=== PATIENT | male | born 1995 | race Caucasian/White ===

== ENCOUNTER 2022-02-22 09:24 | Outpatient (CLI) | payer OTHER | END 2022-02-22 09:25 | disposition home or self-care (01) | LOC: RT 09:24 | DX: R05.9 Cough, unspecified (principal); R06.02 Shortness of breath; R53.83 Other fatigue; Z86.16 Personal history of COVID-19 | CPT/HCPCS: 94060; 94727; 94729 ==

== ENCOUNTER 2022-03-13 21:09 | Emergency (ER) | payer OTHER ==
[2022-03-13 21:28] LABS: BASOPHILS # (AUTO) 0.1 10^3/uL (0.0-0.1); BASOPHILS % (AUTO) 0.7 %; EOSINOPHILS % (AUTO) 0.5 %; HCT - HEMATOCRIT 48.3 % (42.0-52.0); HGB - HEMOGLOBIN 17.1 g/dL (14.0-18.0); LYMPHOCYTES # (AUTO) 3.2 10^3/uL (1.5-3.5); MEAN CORPUSCULAR HEMOGLOBIN 30.7 pg (27.0-31.0); MEAN CORPUSCULAR HGB CONC 35.4 g/dL (32.0-36.0); MEAN CORPUSCULAR VOLUME 86.7 fL (80.0-94.0); MEAN PLATELET VOLUME 10.6 fL (7.4-11.4); MONOCYTES # (AUTO) 0.7 10^3/uL (0.0-1.0); MONOCYTES % (AUTO) 8.3 %; NEUTROPHILS # (AUTO) 4.6 10^3/uL (1.5-6.6); NEUTROPHILS % (AUTO) 53.4 %; PLT - PLATELET COUNT 383 10^3/uL (130-450); RED BLOOD COUNT 5.57 10^6/uL (4.70-6.10); RED CELL DISTRIBUTION WIDTH 11.9 % (12.0-15.0); WHITE BLOOD COUNT 8.6 x10^3/uL (4.8-10.8)
[2022-03-13 21:35] LABS: BILIRUBIN,URINE NEGATIVE (NEGATIVE); GLUCOSE, URINE (UA) NEGATIVE (NEGATIVE); KETONES,URINE (UA) TRACE mg/dL (NEGATIVE); LEUKOCYTE ESTERASE, URINE NEGATIVE (NEGATIVE); NITRITE,URINE NEGATIVE (NEGATIVE); OCCULT BLOOD,URINE NEGATIVE (NEGATIVE); PROTEIN,URINE NEGATIVE (NEGATIVE); UROBILINOGEN,URINE 0.2 (NORMAL) E.U./dL (NORMAL)
[2022-03-13 21:36] LABS: CLARITY,URINE CLEAR (CLEAR)
[2022-03-13 21:44] LABS: ALBUMIN 4.6 g/dL (3.2-5.5); ALBUMIN/GLOBULIN RATIO 1.2 (1.0-2.2); BILIRUBIN,TOTAL 0.8 mg/dL (0.2-1.0); CALCIUM 9.4 mg/dL (8.5-10.3); CREATININE 1.1 mg/dL (0.6-1.2); POTASSIUM 3.7 mmol/L (3.5-5.0); TOTAL PROTEIN 8.3 g/dL (6.7-8.2)
[2022-03-13] MEDS ORDERED: ONDANSETRON 4 MG/2 ML VIAL IVP STA (21:45)
[2022-03-13] MEDS ORDERED: SODIUM CHLORIDE 0.9% 1,000 ML IV STA (21:45)
[2022-03-13] MEDS ORDERED: IOPAMIDOL-300 100 ML VIAL ONE ×2 (22:00→22:12)
[2022-03-13] MEDS ORDERED: IOPAMIDOL-300 100 ML VIAL IVP ONE (22:11)
--- NOTE | 2022-03-13 22:52 | ED Physician Documentation ---
PD HPI ABD PAIN - Stated complaint Stated Complaint: SHAKING, VOMIT, HEAT/COLD FLUSH - Chief complaint Chief Complaint: Abd Pain - History obtained from History obtained from: Patient - Additional information Additional information: Patient is a 27-year-old male with no significant past medical history presenting for evaluation of generalized abdominal pain with nausea since Saturday. Saturday afternoon he ate a stab sandwich from [employer] and soon after had several episodes of emesis. Since that time he has been feeling unwell. He has not had any further episodes of emesis since Saturday. He denies bilious or bloody emesis. He has had normal stools. Denies hematuria. He has had ongoing nausea and decreased appetite. Denies any sick contacts or recent travel. No previous abdominal surgeries. Review of Systems Constitutional: denies: Fever Nose: denies: Congestion Throat: denies: Sore throat Cardiac: denies: Chest pain / pressure, Palpitations Respiratory: denies: Dyspnea, Cough GI: reports: Abdominal Pain, Nausea, Vomiting. denies: Diarrhea : denies: Dysuria, Hematuria Skin: denies: Rash Musculoskeletal: denies: Back pain Neurologic: denies: Syncope, Headache PD PAST MEDICAL HISTORY - Past Medical History Past Medical History: Yes GI: GERD HEENT: Other Other Past Medical History: tinnitis. josh knee pain. Rt achiles tendonitis - Past Surgical History Past Surgical History: Yes - Present Medications Home Medications: Ambulatory Orders Medication Instructions Recorded Confirmed Famotidine [Pepcid] 20 mg PO DAILY 03/13/22 03/13/22 Ondansetron Odt [Zofran] 4 mg TL Q6H PRN #10 tablet 03/13/22 - Allergies Allergies/Adverse Reactions: Allergies Allergy/AdvReac Type Severity Reaction Status Date / Time No Known Drug Allergies Allergy Verified 03/13/22 21:16 - Social History Does the pt smoke?: No Smoking Status: Never smoker Does the pt drink ETOH?: No Does the pt have substance abuse?: No - Immunizations Immunizations are current?: Yes PD ED PE NORMAL - General General: Alert and oriented X 3, No acute distress, Well developed/nourished - HEENT HEENT: Atraumatic, Moist mucous membranes - Neck Neck: Supple, no meningeal sign - Cardiac Cardiac: RRR, No murmur, Strong equal pulses - Respiratory Respiratory: No respiratory distress, Clear bilaterally - Abdomen Abdomen: Normal bowel sounds, Soft, Non distended, Other (Or lower quadrant tenderness with no rebound or guarding) - Back Back: No CVA TTP - Derm Derm: Normal color, No rash - Extremities Extremities: No edema - Neuro Neuro: Alert and oriented X 3, No motor deficit, Normal speech - Psych Psych: Normal mood, Normal affect Results - Vitals Vitals: Vital Signs - 24 hr 03/13/22 03/13/22 21:12 23:35 Temperature 36.1 C L 36.9 C Heart Rate 84 58 L Respiratory 16 15 Rate Blood Pressure 113/78 126/78 O2 Saturation 98 98 Oxygen O2 Source Room air - Labs Labs: Laboratory Tests 03/13/22 03/13/22 03/13/22 21:20 21:22 21:22 WBC 8.6 RBC 5.57 Hgb 17.1 Hct 48.3 MCV 86.7 MCH 30.7 MCHC 35.4 RDW 11.9 L Plt Count 383 MPV 10.6 Neut # (Auto) 4.6 Lymph # (Auto) 3.2 [place] # (Auto) 0.7 Eos # (Auto) 0.0 Baso # (Auto) 0.1 Absolute Nucleated RBC 0.00 Nucleated RBC % 0.0 Sodium 138 Potassium 3.7 Chloride 103 Carbon Dioxide 25 Anion Gap 10.0 BUN 18 Creatinine 1.1 Estimated GFR (MDRD) 80 L Glucose 97 Calcium 9.4 Total Bilirubin 0.8 AST 24 ALT 34 Alkaline Phosphatase 51 Total Protein 8.3 H Albumin 4.6 Globulin 3.7 Albumin/Globulin Ratio 1.2 Lipase 41 Urine Color DARK YELLOW Urine Clarity CLEAR Urine pH 6.0 Ur Specific [place] >=1.030 H Urine Protein NEGATIVE Urine Glucose (UA) NEGATIVE Urine Ketones TRACE Urine Occult Blood NEGATIVE Urine Nitrite NEGATIVE Urine Bilirubin NEGATIVE Urine Urobilinogen 0.2 (NORMAL) Ur Leukocyte Esterase NEGATIVE Ur Microscopic Review NOT INDICATED Urine Culture Comments NOT INDICATED PD MEDICAL DECISION MAKING - ED course Complexity details: reviewed results, re-evaluated patient, d/w patient ED course: Patient presenting for evaluation of vomiting that resolved on Saturday with continued nausea and generalized abdominal pain. Vital signs are reassuring. Abdominal exam with mild tenderness in the lower abdomen but no peritoneal signs. Labs are reassuring. CT scan without acute findings. Although appendix is not clearly visualized there are no other findings to suggest acute appendicitis which I would expect in a patient with symptoms for 4 days. Additionally, repeat abdominal exam is benign. Patient feels better after IV fluids and antiemetics. He had been tolerating p.o. earlier today. He reported eating Applesauce, banana and Pedialyte. Discussed continuing with supportive care and need for close follow-up. Patient is aware of strict return precautions. Departure - Departure Disposition: 01 Home, Self Care Clinical Impression: Abdominal pain Qualifiers: Abdominal location: generalized Qualified Code(s): R10.84 - Generalized abdominal pain Vomiting Qualifiers: Vomiting type: unspecified Nausea presence: with nausea Qualified Code(s): R11.2 - Nausea with vomiting, unspecified Condition: Stable Instructions: ED Nausea Vomiting, ED Abdominal Pain Unkn Cause Male Prescriptions: Ondansetron Odt [Zofran] 4 mg TL Q6H PRN #10 tablet PRN Reason: Nausea / Vomiting Comments: Jose Your evaluated for vomiting and abdominal pain. Your labs are reassuring and your CT scan also did not show anything requiring surgery or an infection needing antibiotics.I have sent a prescription for nausea medication to the [facility] in [place]. Please start with a bland diet tomorrow and advance as you are able to tolerate. If you develop worsening abdominal pain, have continued nausea or vomiting, have any concerns please return to the emergency department. Discharge Date/Time: 03/13/22 23:35
--- NOTE | 2022-03-13 23:09 | CT Report ---
PROCEDURE: Abdomen/Pelvis W INDICATIONS: nausea/ lower abd pain CONTRAST: IV CONTRAST: Isovue 300 ml: 100 PO CONTRAST: *NO PO CONTRAST TECHNIQUE: After the administration of intravenous contrast, 5 mm thick sections acquired from the diaphragms to the symphysis. 5 mm thick coronal and sagittal reformats were acquired. For radiation dose reducti on, the following was used: automated exposure control, adjustment of mA and/or kV according to ofelia ent size. COMPARISON: None. FINDINGS: Image quality: Excellent. ABDOMEN: Lung bases: Lung bases are clear. Heart size is normal. Solid organs: There is diffuse hypoattenuation of the liver consistent with fatty rotation. Gallbladd er appears within normal limits without calcified gallstones. Biliary system is non dilated. The spl een is normal in size. Pancreas enhances normally without peripancreatic fat stranding or fluid colle ctions. No adrenal nodules. Kidneys demonstrate no hydronephrosis. Peritoneum and bowel: Bowel loops demonstrate normal wall thickness and caliber. The appendix is no t discretely identified but there are no pericecal inflammatory changes to suggest appendicitis. Ther e are a few colonic diverticula without acute diverticulitis. No free fluid or air. Nodes and vessels: No retroperitoneal or mesenteric adenopathy by size criteria. Aorta and inferior vena cava are normal in size. Miscellaneous: No ventral hernias. PELVIS: Genitourinary: The urinary bladder is partially distended. Miscellaneous: No inguinal hernias or adenopathy. Bones: No suspicious bony lesions. No vertebral body compression fractures. IMPRESSION: 1. No definite acute intra-abdominal abnormality. 2. Mild colonic diverticulosis without acute diverticulitis. 3. Hepatic steatosis. Reviewed by: Geo Child MD on 03/13/2022 11:08 PM PDT Approved by: Geo Child MD on 03/13/2022 11:08 PM PDT Station ID: [id number]
[2022-03-13 23:45] VITALS: BP 126/78
== END 2022-03-13 23:35 | disposition home or self-care (01) ==
LOC: ED 21:09
DX: R10.84 Generalized abdominal pain (principal); R11.2 Nausea with vomiting, unspecified
CPT/HCPCS: 36415; 74177; 80053; 81003; 83690; 85025; 96374; 99283; 99284; Q9967; 81001; 87086

== ENCOUNTER 2022-03-16 17:09 | Outpatient (CLI) | payer OTHER | END 2022-03-16 17:10 | disposition EMS.NT | LOC: EMS 17:09 | DX: R10.10 Upper abdominal pain, unspecified (principal); R11.2 Nausea with vomiting, unspecified ==

== ENCOUNTER 2022-03-16 18:18 | Inpatient (IN) | payer OTHER ==
[2022-03-16] MEDS ORDERED: SODIUM CHLORIDE 0.9% 1,000 ML IV STA (18:31)
[2022-03-16] MEDS ORDERED: HYDROmorphone 1 MG/ML CARPUJECT IVP STA ×2 (18:31→20:18)
[2022-03-16] MEDS ORDERED: METOCLOPRAMIDE 10 MG/2 ML VIAL IVP STA (18:31)
--- NOTE | 2022-03-16 18:32 | ED Physician Documentation ---
PD HPI ABD PAIN - Stated complaint Stated Complaint: ABD PX/N/V - Chief complaint Chief Complaint: Abd Pain - History obtained from History obtained from: Patient, EMS - Additional information Additional information: Previously healthy 27-year-old gentleman was here on Saturday, 4 days ago for vomiting and abdominal pain. He was seen by my partner and work-up showed basically normal CAT scan and normal labs. He was treated with meds and feeling better. He still felt mildly ill all week but got very ill again tonight with epigastric pain and vomiting. There is no blood in the vomit. His bowel movements have been normal. Before a week ago he had never had anything like this before. 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 He received 4 mg of Zofran IM prior to arrival. Review of Systems Ten Systems: 10 systems reviewed and negative Constitutional: reports: Sweats Nose: reports: Reviewed and negative Throat: reports: Reviewed and negative Cardiac: reports: Reviewed and negative PD PAST MEDICAL HISTORY - Past Medical History GI: GERD HEENT: Other - Past Surgical History Past Surgical History: Yes - Present Medications Home Medications: Ambulatory Orders Medication Instructions Recorded Confirmed Famotidine [Pepcid] 20 mg PO DAILY 03/13/22 03/16/22 - Allergies Allergies/Adverse Reactions: Allergies Allergy/AdvReac Type Severity Reaction Status Date / Time No Known Drug Allergies Allergy Verified 03/13/22 21:16 - Social History Does the pt smoke?: No Smoking Status: Never smoker Does the pt drink ETOH?: No Does the pt have substance abuse?: No - Immunizations Immunizations are current?: Yes PD ED PE NORMAL - Vitals Vital signs reviewed: Yes - General General: Alert and oriented X 3, Other (Retching and uncomfortable, diaphoretic) - Cardiac Cardiac: RRR, No murmur - Respiratory Respiratory: No respiratory distress, Clear bilaterally - Abdomen Abdomen: Normal bowel sounds, Soft, Non tender - Back Back: No CVA TTP, No spinal TTP - Derm Derm: Normal color, Warm and dry - Neuro Neuro: Alert and oriented X 3, Normal speech Results - Vitals Vitals: Vital Signs - 24 hr 03/16/22 03/16/22 03/16/22 18:30 20:27 20:34 Heart Rate 95 Respiratory 20 23 19 Rate Blood Pressure 146/91 H O2 Saturation 99 100 98 Oxygen O2 Source Room air - Labs Labs: Laboratory Tests 03/16/22 03/16/22 03/16/22 18:32 18:32 20:20 WBC 15.3 H RBC 5.90 Hgb 17.8 Hct 50.4 MCV 85.4 MCH 30.2 MCHC 35.3 RDW 11.9 L Plt Count 498 H MPV 10.6 Neut # (Auto) 11.6 H Lymph # (Auto) 2.7 [place] # (Auto) 0.9 Eos # (Auto) 0.0 Baso # (Auto) 0.1 Absolute Nucleated RBC 0.00 Nucleated RBC % 0.0 Sodium 138 Potassium 3.2 L Chloride 101 Carbon Dioxide 19 L Anion Gap 18.0 H BUN 19 Creatinine 1.3 H Estimated GFR (MDRD) 66 L Glucose 152 H Calcium 10.0 Total Bilirubin 1.1 H AST 36 ALT 38 Alkaline Phosphatase 51 Total Protein 8.7 H Albumin 5.2 Globulin 3.5 Albumin/Globulin Ratio 1.5 Lipase 40 Urine Color YELLOW Urine Clarity CLEAR Urine pH 6.5 Ur Specific [place] 1.010 Urine Protein NEGATIVE Urine Glucose (UA) NEGATIVE Urine Ketones >=80 H Urine Occult Blood NEGATIVE Urine Nitrite NEGATIVE Urine Bilirubin NEGATIVE Urine Urobilinogen 0.2 (NORMAL) Ur Leukocyte Esterase NEGATIVE Ur Microscopic Review NOT INDICATED Urine Culture Comments NOT INDICATED Urine Opiates Screen POSITIVE H Ur Oxycodone Screen NEGATIVE Urine Methadone Screen NEGATIVE Ur Propoxyphene Screen NEGATIVE Ur Barbiturates Screen NEGATIVE Ur Tricyclics Screen NEGATIVE Ur Phencyclidine Scrn NEGATIVE Ur Amphetamine Screen NEGATIVE U Methamphetamines Scrn NEGATIVE U Benzodiazepines Scrn NEGATIVE Urine Cocaine Screen NEGATIVE U Cannabinoids Screen POSITIVE H PD MEDICAL DECISION MAKING - ED course ED course: 27-year-old gentleman presents for the second time in a week with abdominal pain and vomiting. Very benign exam but looks ill and miserable with sweating. His white count was normal the other day, now 15,000 with evidence of mild acidosis hypokalemia and mild MANJIT. CT done again and was again without pertinent positive findings. He was administered divided doses of pain medications antiemetics including 3 rounds of antiemetics here without much improvement and as such was presented to the hospitalist, Dr. Espinal for admission. Of note his drug screen came up positive for marijuana. 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 He admits to using marijuana but states that he tapered off a couple of weeks ago. He did not seem to disconcerted by the positive drug test on his chart given that he is already from the [employer]. Departure - Departure Disposition: ED Place in Observation Clinical Impression: Intractable vomiting Condition: Stable
[2022-03-16 18:45] LABS: BASOPHILS # (AUTO) 0.1 10^3/uL (0.0-0.1); BASOPHILS % (AUTO) 0.4 %; EOSINOPHILS % (AUTO) 0.1 %; HCT - HEMATOCRIT 50.4 % (42.0-52.0); HGB - HEMOGLOBIN 17.8 g/dL (14.0-18.0); LYMPHOCYTES # (AUTO) 2.7 10^3/uL (1.5-3.5); LYMPHOCYTES % (AUTO) 17.4 %; MEAN CORPUSCULAR HEMOGLOBIN 30.2 pg (27.0-31.0); MEAN CORPUSCULAR HGB CONC 35.3 g/dL (32.0-36.0); MEAN CORPUSCULAR VOLUME 85.4 fL (80.0-94.0); MEAN PLATELET VOLUME 10.6 fL (7.4-11.4); MONOCYTES # (AUTO) 0.9 10^3/uL (0.0-1.0); NEUTROPHILS # (AUTO) 11.6 10^3/uL (1.5-6.6); NEUTROPHILS % (AUTO) 75.7 %; PLT - PLATELET COUNT 498 10^3/uL (130-450); RED CELL DISTRIBUTION WIDTH 11.9 % (12.0-15.0); WHITE BLOOD COUNT 15.3 x10^3/uL (4.8-10.8)
[2022-03-16 18:58] LABS: ALBUMIN 5.2 g/dL (3.2-5.5); ALBUMIN/GLOBULIN RATIO 1.5 (1.0-2.2); BILIRUBIN,TOTAL 1.1 mg/dL (0.2-1.0); CREATININE 1.3 mg/dL (0.6-1.2); POTASSIUM 3.2 mmol/L (3.5-5.0); TOTAL PROTEIN 8.7 g/dL (6.7-8.2)
[2022-03-16] MEDS ORDERED: HALOPERIDOL 5 MG/ML VIAL IVP STA (19:07)
[2022-03-16] MEDS ORDERED: IOPAMIDOL-300 100 ML VIAL ONE (19:27)
[2022-03-16] MEDS ORDERED: IOPAMIDOL-300 100 ML VIAL IVP ONE (19:34)
[2022-03-16] MEDS ORDERED: PROMETHAZINE INJ 25 MG in SODIUM CHLORIDE 0.9% 50 ML IV STA (19:45)
--- NOTE | 2022-03-16 19:55 | CT Report ---
PROCEDURE: Abdomen/Pelvis W INDICATIONS: Pain. CONTRAST: IV CONTRAST: Isovue 300 ml: 100 PO CONTRAST: *NO PO CONTRAST TECHNIQUE: After the administration of IV contrast, 5 mm thick sections acquired from the diaphragms to the symp hysis. 5 mm thick coronal and sagittal reformats were acquired. For radiation dose reduction, the f ollowing was used: automated exposure control, adjustment of mA and/or kV according to patient size. COMPARISON: None. FINDINGS: Image quality: Excellent. ABDOMEN: Lung bases: Lung bases are clear. Heart size is normal. Solid organs: Liver and spleen are normal in size and enhancement. Gallbladder is within normal klein its. Biliary system is non dilated. Pancreas enhances normally. No adrenal nodules. Kidneys demon strate normal size and enhancement, without hydronephrosis. Peritoneum and bowel: Bowel loops demonstrate normal wall thickness and caliber. No free fluid or a ir. The appendix is normal. Nodes and vessels: No retroperitoneal or mesenteric adenopathy by size criteria. Aorta and inferior vena cava are normal in size. Miscellaneous: No ventral hernias. PELVIS: Genitourinary: Bladder wall thickness is normal. Miscellaneous: No inguinal hernias or adenopathy. Bones: No suspicious bony lesions. No vertebral body compression fractures. IMPRESSION: 1. No acute disease process. 2. No free fluid or free air. 3. No dilated loops of bowel. 4. Appendix is normal. Reviewed by: Katey Narvaez MD, PhD on 03/16/2022 7:53 PM PDT Approved by: Katey Narvaez MD, PhD on 03/16/2022 7:53 PM PDT Station ID: [id number]
[2022-03-16] MEDS ORDERED: PROMETHAZINE 25 MG/1 ML VIAL ONE (20:01)
[2022-03-16] MEDS ORDERED: PANTOPRAZOLE 40 MG VIAL IVP STA (20:04)
[2022-03-16] MEDS ORDERED: POTASSIUM CHLOR 10 MEQ/100 ML 10 MEQ/100 ML BAG IV STA (20:04)
[2022-03-16 20:35] LABS: MUDS CUTOFF CONCENTRATIONS CUTOFF CONC BELOW:
[2022-03-16 20:38] LABS: BILIRUBIN,URINE NEGATIVE (NEGATIVE); GLUCOSE, URINE (UA) NEGATIVE (NEGATIVE); KETONES,URINE (UA) >=80 mg/dL (NEGATIVE); LEUKOCYTE ESTERASE, URINE NEGATIVE (NEGATIVE); NITRITE,URINE NEGATIVE (NEGATIVE); OCCULT BLOOD,URINE NEGATIVE (NEGATIVE); PH,URINE 6.5 PH (5.0-7.5); PROTEIN,URINE NEGATIVE (NEGATIVE); UROBILINOGEN,URINE 0.2 (NORMAL) E.U./dL (NORMAL)
[2022-03-16 20:40] LABS: CLARITY,URINE CLEAR (CLEAR)
[2022-03-16 20:54] LABS: AMPHETAMINE SCREEN,URINE NEGATIVE (NEGATIVE); BARBITURATE SCREEN,UR NEGATIVE (NEGATIVE); BENZODIAZEPINES SCREEN, URINE NEGATIVE (NEGATIVE); COCAINE SCREEN URINE NEGATIVE (NEGATIVE); METHADONE SCREEN, URINE NEGATIVE (NEGATIVE); METHAMPHETAMINES SCREEN, URINE NEGATIVE (NEGATIVE); OPIATE SCREEN, URINE POSITIVE (NEGATIVE); OXYCODONE SCREEN, URINE NEGATIVE (NEGATIVE); PROPOXYPHENE SCREEN, URINE NEGATIVE (NEGATIVE); THC CANNABINOID SCREEN, URINE POSITIVE (NEGATIVE); TRICYCLIC ANTIDEPRESSANT,URINE NEGATIVE (NEGATIVE)
--- NOTE | 2022-03-16 21:53 | HISTORY & PHYSICAL EXAMINATION ---
Chief Complaint - Chief Complaint Chief Complaint: N/V, abd pain History of Present Illness - Admitted From Admitted From:: ED - History Obtained From History obtained from: ED provider and the patient - History of Present Illness HPI Comment/Other: This is a normally healthy 27-year-old white male. He presented to this ED 4 days ago with nausea vomiting and brief abdominal pain, which started 2 days previously after eating a [place] sub. In the ED then, he had normal CT and labs, received IV fluids, antiemetics, was able to tolerate po intake and was discharged home. He had Zofran ODT prescribed. He felt weak but overall better in the last 2 days, ate light meals, had no fever, no diarrhea, but then today again developed recurrent nausea and vomiting and longer lasting abdominal pain and presented to the ED. The recently prescribed Zofran ODT did not help. He felt hot and cold, was shivering, face was red and swollen when retching (shown on a selfie). Today in the ED again an abdominal CT was done that was unremarkable. Today his labs show an elevated white blood count of 15, MANJIT, elevated anion gap, hypokalemia and his drug screen has (+) cannibis. He denied using cannibis for the last 2 weeks however. In the ED, the patient received 3 separate meds for managing nausea vomiting, but was still retching, diaphoretic and appeared uncomfortable. He has not traveled anywhere, started any new medications. He is not exposed to anybody with fever or GI symptoms. The patient is being placed in Observation status to manage his recurrent, incessant nausea and vomiting and abdominal pain. 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 Quit smoking c igarettes 3 years ago. Uses cannabis intermittently, he claims the last use was 2 weeks ago. He drinks no alcohol. - Substance History Use: Uses substance without health or social issues: Cannabis - POLST Patient has POLST: No Meds/Allgy - Home Medications Home Medications: Ambulatory Orders Medication Instructions Recorded Confirmed Famotidine [Pepcid] 20 mg PO DAILY 03/13/22 03/16/22 Ondansetron Odt [Zofran Odt] 4 mg TL Q6H PRN 03/16/22 03/16/22 - Allergies Allergies/Adverse Reactions: Allergies Allergy/AdvReac Type Severity Reaction Status Date / Time No Known Drug Allergies Allergy Verified 03/13/22 21:16 Review of Systems - Constitutional Constitutional: reports: Weakness, Poor appetite - Gastrointestinal Gastrointestinal: reports: Abdominal pain, Nausea, Vomiting - All Other Systems All Other Systems: reports: Reviewed and negative Exam - Vital Signs Vital Signs: Vital Signs x48h Pulse Resp BP Pulse Ox 03/16/22 20:34 19 146/91 H 98 03/16/22 20:27 23 100 03/16/22 18:30 95 20 99 - Physical Exam General Appearance: positive: No acute distress, Alert Eyes Bilateral: positive: Other (Very dark circles under eyes, appears tired) ENT: positive: ENT inspection nml, No signs of dehydration Neck: positive: Nml inspection, No JVD Respiratory: positive: No respiratory distress, Breath sounds nml Cardiovascular: positive: Regular rate & rhythm, No murmur Abdomen: positive: Non-tender, No organomegaly, Nml bowel sounds, No distention Skin: positive: Warm, Dry, Other (Many tattoos of upper body) Extremities: positive: Non-tender, No pedal edema, Other (R great toe bandaged (ingrown toenail was removed today).) Neurologic/Psychiatric: positive: Oriented x3 (Non-focal) Conclusion/Plan - Problem List (1) Intractable vomiting Conclusion/Plan: Benign exam and imaging were found (again) today. Marijuana use may be the likely culprit of his intractable nausea and vomiting and recurrent retching may be the cause of the abdominal pain (superficial abdominal muscles). He may have a viral gastroenteritis. Will treat with IV antiemetics, several types in order to suppress his nausea to prevent retching and vomiting. Continue iv fluids (2) MANJIT (acute kidney injury) Conclusion/Plan: Creat was normal 4 days ago, today creat 1.3, likely caused by several days of decreased p.o. intake and several days of vomiting resulting in dehydration. Begin IV fluids. Follow BMP daily (3) Hypokalemia due to excessive gastrointestinal loss of potassium Conclusion/Plan: Will replace with iv riders Follow BMP, Mg and PO4 daily or more frequently if hard to replace (4) Elevated WBC count Conclusion/Plan: This is likely a phase reactant related to stress of his many days of nausea and vomiting and dehydration No obvious source of infection is found clinically or by imaging. Treat with antiemetics and IV fluids Follow CBC daily (5) Marijuana use Conclusion/Plan: Cannibis use may very well be the cause of his recurrent cyclical nausea and vomiting. He stated that he is decreasing its use which is supported. - Lab Results Fish Bones: 03/16/22 18:32 03/16/22 18:32 - Diagnostic Imaging Results Diagnostic Imaging Results: positive: Final report reviewed
[2022-03-16] MEDS: D5NS W/20 MEQ KCL 1,000 ML IV SCH (23:00)
[2022-03-16] MEDS: SODIUM CHLORIDE FLUSH 0.9% 10 ML SYRINGE IVP SCH (23:00)
[2022-03-17 06:27] LABS: BASOPHILS % (AUTO) 0.2 %; HCT - HEMATOCRIT 48.3 % (42.0-52.0); HGB - HEMOGLOBIN 16.9 g/dL (14.0-18.0); LYMPHOCYTES # (AUTO) 1.5 10^3/uL (1.5-3.5); LYMPHOCYTES % (AUTO) 13.5 %; MEAN CORPUSCULAR HEMOGLOBIN 30.7 pg (27.0-31.0); MEAN CORPUSCULAR VOLUME 87.8 fL (80.0-94.0); MEAN PLATELET VOLUME 10.8 fL (7.4-11.4); MONOCYTES # (AUTO) 0.7 10^3/uL (0.0-1.0); MONOCYTES % (AUTO) 6.6 %; NEUTROPHILS # (AUTO) 8.9 10^3/uL (1.5-6.6); NEUTROPHILS % (AUTO) 79.4 %; PLT - PLATELET COUNT 382 10^3/uL (130-450); RED CELL DISTRIBUTION WIDTH 12.4 % (12.0-15.0); WHITE BLOOD COUNT 11.2 x10^3/uL (4.8-10.8)
[2022-03-17 06:39] LABS: CALCIUM 9.2 mg/dL (8.5-10.3); MAGNESIUM 2.4 mg/dL (1.7-2.8); POTASSIUM 4.2 mmol/L (3.5-5.0)
[2022-03-17] MEDS: ONDANSETRON 4 MG/2 ML VIAL IVP PRN ×3 (06:39→22:51)
[2022-03-17] MEDS: PROCHLORPERAZINE 10 MG/2 ML VIAL IVP PRN ×3 (07:23→23:34)
[2022-03-17] MEDS: SODIUM CHLORIDE FLUSH 0.9% 10 ML SYRINGE IVP SCH ×3 (07:24→22:51)
--- NOTE | 2022-03-17 08:20 | PROVIDER PROGRESS NOTE ---
Assessment/Plan - Problem List (1) Intractable vomiting Assessment/Plan: Suspect secondary to marijuana use. CT of the abdomen/pelvis was negative for any acute process. Zofran, Phenergan, Reglan and Ativan ordered as needed for nausea and vomiting. Patient is to be strict NPO. (2) MANJIT (acute kidney injury) Assessment/Plan: Resolved. Likely prerenal from nausea vomiting. Creatinine at admission was 1.3. Currently creatinine is 1.0. (3) Elevated WBC count Assessment/Plan: Reactive. WBC at admission was 15.3. Currently 11.2. (4) Hypokalemia due to excessive gastrointestinal loss of potassium Assessment/Plan: Secondary to nausea and vomiting. Potassium at admission was 3.2. This has been replaced. Recheck of potassium this morning was 4.2. We will continue to monitor and treat accordingly. (5) Abdominal pain Qualifiers: Abdominal location: generalized Qualified Code(s): R10.84 - Generalized abdominal pain Assessment/Plan: This is likely from excessive vomiting. CT of the abdomen was unremarkable. Treating underlying nausea vomiting with antiemetics. - Current Meds Current Meds: Current Medications Generic Name Dose Route Start Last Admin Trade Name Freq PRN Reason Stop Dose Admin Potassium Chloride/Dextrose/Sod Cl 1,000 mls @ 100 mls/hr 03/16/22 22:00 03/16/22 23:00 D5ns W/20 Meq Kcl IV 100 mls/hr .Q10H SHEKHAR Administration Ondansetron HCl 4 mg 03/16/22 21:47 03/17/22 06:39 Ondansetron 4 Mg/2 Ml Vial IVP 4 mg Q6HR PRN Administration Nausea / Vomiting Prochlorperazine Edisylate 10 mg 03/16/22 21:47 03/17/22 07:23 Prochlorperazine 10 Mg/2 Ml Vial IVP 10 mg Q6HR PRN Administration Nausea / Vomiting Sodium Chloride 10 ml 03/17/22 01:00 03/17/22 07:24 Sodium Chloride Flush 0.9% 10 Ml Syringe IVP 10 ml 0100,0900,1700 SHEKHAR Administration - Lab Result Fish Bone Diagrams: 03/17/22 06:19 03/17/22 06:19 - Additional Planning My Orders: My Active Orders 03/17/22 08:14 Metoclopramide Inj [Reglan Inj] 5 mg IVP Q6HR PRN Promethazine Inj [Phenergan Inj] 25 mg Sodium Chloride 0.9% [Normal Saline 0.9%] 50 ml IV Q6H Subjective - Subjective Patient Reports: Other (Patient was retching significantly at the time of exam. He also complained of abdominal pain. It seems the nausea and vomiting was exacerbated when he attempted to ingest some Jell-O.) Objective Vital Signs: Vital Signs - 24 hr 03/16/22 03/16/22 03/16/22 18:30 20:27 20:34 Temperature Heart Rate 95 Heart Rate [ Brachial] Respiratory 20 23 19 Rate Blood Pressure 146/91 H Blood Pressure [Left Brachial artery] O2 Saturation 99 100 98 03/16/22 03/16/22 03/17/22 22:24 23:48 07:27 Temperature 36.4 C L 36.2 C L 36.5 C Heart Rate Heart Rate [ 53 L 65 75 Brachial] Respiratory 20 20 20 Rate Blood Pressure Blood Pressure 129/62 117/71 118/79 [Left Brachial artery] O2 Saturation 100 99 100 Oxygen O2 Source Room air I&O (Last 24 Hrs): Intake and Output Totals x24h 03/15/22 03/16/22 03/17/22 23:59 23:59 23:59 Intake Total 1151 Balance 1151 General: Alert, Oriented x3, Moderate distress HEENT: PERRLA, EOMI Neck: Supple, No JVD Neuro: Alert, Non Focal, Oriented Times 3 Cardiovascular: Regular rate, Normal S1, Normal S2 Respiratory: Chest non-tender, No respiratory distress, Breath sounds nml Abdomen: Normal bowel sounds, Soft Extremities: No clubbing, No cyanosis, No edema, No tenderness/swelling Skin: No rashes, No breakdown, No significant lesion - Results Results: Laboratory Results WBC 11.2 x10^3/uL (4.8-10.8) H 03/17/22 06:19 RBC 5.50 10^6/uL (4.70-6.10) 03/17/22 06:19 Hgb 16.9 g/dL (14.0-18.0) 03/17/22 06:19 Hct 48.3 % (42.0-52.0) 03/17/22 06:19 MCV 87.8 fL (80.0-94.0) 03/17/22 06:19 MCH 30.7 pg (27.0-31.0) 03/17/22 06:19 MCHC 35.0 g/dL (32.0-36.0) 03/17/22 06:19 RDW 12.4 % (12.0-15.0) 03/17/22 06:19 Plt Count 382 10^3/uL (130-450) 03/17/22 06:19 MPV 10.8 fL (7.4-11.4) 03/17/22 06:19 Neut # (Auto) 8.9 10^3/uL (1.5-6.6) H 03/17/22 06:19 Lymph # (Auto) 1.5 10^3/uL (1.5-3.5) 03/17/22 06:19 [place] # (Auto) 0.7 10^3/uL (0.0-1.0) 03/17/22 06:19 Eos # (Auto) 0.0 10^3/uL (0.0-0.7) 03/17/22 06:19 Baso # (Auto) 0.0 10^3/uL (0.0-0.1) 03/17/22 06:19 Absolute Nucleated RBC 0.00 x10^3/uL 03/17/22 06:19 Nucleated RBC % 0.0 /100WBC 03/17/22 06:19 Sodium 140 mmol/L (135-145) 03/17/22 06:19 Potassium 4.2 mmol/L (3.5-5.0) 03/17/22 06:19 Chloride 107 mmol/L (101-111) 03/17/22 06:19 Carbon Dioxide 22 mmol/L (21-32) 03/17/22 06:19 Anion Gap 11.0 (6-13) 03/17/22 06:19 BUN 14 mg/dL (6-20) 03/17/22 06:19 Creatinine 1.0 mg/dL (0.6-1.2) 03/17/22 06:19 Estimated GFR (MDRD) 89 (>89) 03/17/22 06:19 Glucose 113 mg/dL (70-100) H 03/17/22 06:19 Calcium 9.2 mg/dL (8.5-10.3) 03/17/22 06:19 Phosphorus 4.0 mg/dL (2.5-4.6) 03/17/22 06:19 Magnesium 2.4 mg/dL (1.7-2.8) 03/17/22 06:19 Total Bilirubin 1.1 mg/dL (0.2-1.0) H 03/16/22 18:32 AST 36 IU/L (10-42) 03/16/22 18:32 ALT 38 IU/L (10-60) 03/16/22 18:32 Alkaline Phosphatase 51 IU/L (42-121) 03/16/22 18:32 Total Protein 8.7 g/dL (6.7-8.2) H 03/16/22 18:32 Albumin 5.2 g/dL (3.2-5.5) 03/16/22 18:32 Globulin 3.5 g/dL (2.1-4.2) 03/16/22 18:32 Albumin/Globulin Ratio 1.5 (1.0-2.2) 03/16/22 18:32 Lipase 40 U/L (22-51) 03/16/22 18:32 Urine Color YELLOW 03/16/22 20:20 Urine Clarity CLEAR (CLEAR) 03/16/22 20:20 Urine pH 6.5 PH (5.0-7.5) 03/16/22 20:20 Ur Specific [place] 1.010 (1.002-1.030) 03/16/22 20:20 Urine Protein NEGATIVE mg/dL (NEGATIVE) 03/16/22 20:20 Urine Glucose (UA) NEGATIVE mg/dL (NEGATIVE) 03/16/22 20:20 Urine Ketones >=80 mg/dL (NEGATIVE) H 03/16/22 20:20 Urine Occult Blood NEGATIVE (NEGATIVE) 03/16/22 20:20 Urine Nitrite NEGATIVE (NEGATIVE) 03/16/22 20:20 Urine Bilirubin NEGATIVE (NEGATIVE) 03/16/22 20:20 Urine Urobilinogen 0.2 (NORMAL) E.U./dL (NORMAL) 03/16/22 20:20 Ur Leukocyte Esterase NEGATIVE (NEGATIVE) 03/16/22 20:20 Ur Microscopic Review NOT INDICATED 03/16/22 20:20 Urine Culture Comments NOT INDICATED 03/16/22 20:20 Urine Opiates Screen POSITIVE (NEGATIVE) H 03/16/22 20:20 Ur Oxycodone Screen NEGATIVE (NEGATIVE) 03/16/22 20:20 Urine Methadone Screen NEGATIVE (NEGATIVE) 03/16/22 20:20 Ur Propoxyphene Screen NEGATIVE (NEGATIVE) 03/16/22 20:20 Ur Barbiturates Screen NEGATIVE (NEGATIVE) 03/16/22 20:20 Ur Tricyclics Screen NEGATIVE (NEGATIVE) 03/16/22 20:20 Ur Phencyclidine Scrn NEGATIVE (NEGATIVE) 03/16/22 20:20 Ur Amphetamine Screen NEGATIVE (NEGATIVE) 03/16/22 20:20 U Methamphetamines Scrn NEGATIVE (NEGATIVE) 03/16/22 20:20 U Benzodiazepines Scrn NEGATIVE (NEGATIVE) 03/16/22 20:20 Urine Cocaine Screen NEGATIVE (NEGATIVE) 03/16/22 20:20 U Cannabinoids Screen POSITIVE (NEGATIVE) H 03/16/22 20:20 SARS-CoV-2 (PCR) NOT DETECTED 03/16/22 20:31 ABX Reporting Has patient been on IV antibiotics over the past 48 hours?: No
[2022-03-17] MEDS ORDERED: LORazepam 2 MG/ML VIAL IVP STA (08:49)
[2022-03-17] MEDS: METOCLOPRAMIDE 10 MG/2 ML VIAL IVP PRN ×3 (09:08→23:40)
[2022-03-17] MEDS: D5NS W/20 MEQ KCL 1,000 ML IV SCH ×2 (09:09→21:31)
[2022-03-17] MEDS: SODIUM CHLORIDE FLUSH 0.9% 10 ML SYRINGE IVP PRN ×3 (10:44→15:04)
[2022-03-17] MEDS: PROMETHAZINE INJ 25 MG in SODIUM CHLORIDE 0.9% 50 ML IV PRN (10:44)
[2022-03-18] MEDS: LORazepam 0.5 MG TABLET PO PRN (00:22)
[2022-03-18] MEDS: FAMOTIDINE 20 MG TABLET PO SCH ×3 (00:22→22:28)
[2022-03-18] MEDS: BENZOCAINE/MENTHOL LOZENGE MM PRN ×5 (00:52→22:28)
[2022-03-18 04:56] LABS: BASOPHILS % (AUTO) 0.2 %; HCT - HEMATOCRIT 45.5 % (42.0-52.0); LYMPHOCYTES # (AUTO) 1.1 10^3/uL (1.5-3.5); MEAN CORPUSCULAR HEMOGLOBIN 30.9 pg (27.0-31.0); MEAN CORPUSCULAR HGB CONC 35.2 g/dL (32.0-36.0); MEAN CORPUSCULAR VOLUME 87.8 fL (80.0-94.0); MEAN PLATELET VOLUME 11.2 fL (7.4-11.4); MONOCYTES # (AUTO) 0.9 10^3/uL (0.0-1.0); MONOCYTES % (AUTO) 4.6 %; NEUTROPHILS # (AUTO) 16.7 10^3/uL (1.5-6.6); NEUTROPHILS % (AUTO) 88.9 %; PLT - PLATELET COUNT 327 10^3/uL (130-450); RED BLOOD COUNT 5.18 10^6/uL (4.70-6.10); RED CELL DISTRIBUTION WIDTH 12.7 % (12.0-15.0); WHITE BLOOD COUNT 18.7 x10^3/uL (4.8-10.8)
[2022-03-18 05:03] LABS: CALCIUM 9.1 mg/dL (8.5-10.3); POTASSIUM 3.7 mmol/L (3.5-5.0)
[2022-03-18] MEDS: ONDANSETRON 4 MG/2 ML VIAL IVP PRN ×2 (05:31→12:20)
[2022-03-18] MEDS: PROCHLORPERAZINE 10 MG/2 ML VIAL IVP PRN (05:35)
[2022-03-18] MEDS: D5NS W/20 MEQ KCL 1,000 ML IV SCH ×2 (07:56→19:11)
[2022-03-18] MEDS: METOCLOPRAMIDE 10 MG/2 ML VIAL IVP PRN (07:56)
--- NOTE | 2022-03-18 07:56 | PROVIDER PROGRESS NOTE ---
Assessment/Plan - Problem List (1) Intractable vomiting Assessment/Plan: Suspect secondary to marijuana use. CT of the abdomen/pelvis was negative for any acute process. Zofran, Phenergan, Reglan and Ativan ordered as needed for nausea and vomiting. Patient is to be strict NPO. (2) MANJIT (acute kidney injury) Assessment/Plan: Resolved. Likely prerenal from nausea vomiting. Creatinine at admission was 1.3. Currently creatinine is 1.0. (3) Elevated WBC count Assessment/Plan: Reactive. WBC at admission was 15.3. Currently 18.7 He is afebrile. No diarrhea. Will continue to monitor (4) Hypokalemia due to excessive gastrointestinal loss of potassium Assessment/Plan: Secondary to nausea and vomiting. Potassium at admission was 3.2. This has been replaced. Recheck of potassium this morning was 3.7. We will continue to monitor and treat accordingly. (5) Abdominal pain Qualifiers: Abdominal location: generalized Qualified Code(s): R10.84 - Generalized abdominal pain Assessment/Plan: This is likely from excessive vomiting. CT of the abdomen was unremarkable. Treating underlying nausea vomiting with antiemetics. (5) Abdominal pain Qualifiers: Abdominal location: generalized Qualified Code(s): R10.84 - Generalized abdominal pain - Current Meds Current Meds: Current Medications Generic Name Dose Route Start Last Admin Trade Name Freq PRN Reason Stop Dose Admin Famotidine 20 mg 03/17/22 23:00 03/18/22 00:22 Famotidine 20 Mg Tablet PO 20 mg BID SHEKHAR Administration Potassium Chloride/Dextrose/Sod Cl 1,000 mls @ 100 mls/hr 03/16/22 22:00 03/17/22 21:31 D5ns W/20 Meq Kcl IV 100 mls/hr .Q10H SHEKHAR Administration Promethazine HCl 25 mg/ Sodium 51 mls @ 100 mls/hr 03/17/22 08:14 03/17/22 1 1:20 Chloride IV Infused Q6H PRN Infusion Nausea / Vomiting Lorazepam 0.5 mg 03/17/22 22:48 03/18/22 00:22 Lorazepam 0.5 Mg Tablet PO 0.5 mg BID PRN Administration Insomnia Metoclopramide HCl 5 mg 03/17/22 08:14 03/17/22 23:40 Metoclopramide 10 Mg/2 Ml Vial IVP 5 mg Q6HR PRN Administration Nausea / Vomiting Ondansetron HCl 4 mg 03/16/22 21:47 03/18/22 05:31 Ondansetron 4 Mg/2 Ml Vial IVP 4 mg Q6HR PRN Administration Nausea / Vomiting Prochlorperazine Edisylate 10 mg 03/16/22 21:47 03/18/22 05:35 Prochlorperazine 10 Mg/2 Ml Vial IVP 10 mg Q6HR PRN Administration Nausea / Vomiting Sodium Chloride 10 ml 03/16/22 21:47 03/17/22 15:04 Sodium Chloride Flush 0.9% 10 Ml Syringe IVP 10 ml PRN PRN Administration NEEDED PER PROVIDER ORDERS Sodium Chloride 10 ml 03/17/22 01:00 03/17/22 22:51 Sodium Chloride Flush 0.9% 10 Ml Syringe IVP 10 ml 0100,0900,1700 SHEKHAR Administration Throat Lozenges 1 lozenge 03/18/22 00:24 03/18/22 05:30 Benzocaine/Menthol Lozenge MM 1 lozenge Q2HR PRN Administration Throat pain - Lab Result Fish Bone Diagrams: 03/18/22 04:24 03/18/22 04:24 - Additional Planning My Orders: My Active Orders 03/17/22 08:14 Metoclopramide Inj [Reglan Inj] 5 mg IVP Q6HR PRN Promethazine Inj [Phenergan Inj] 25 mg Sodium Chloride 0.9% [Normal Saline 0.9%] 50 ml IV Q6H 03/19/22 05:00 BMP - BASIC METABOLIC PANEL [CHEM] DAILYLAB CBC - COMP BLD CT W/AUTO DIFF [HEME] DAILYLAB 03/20/22 05:00 BMP - BASIC METABOLIC PANEL [CHEM] DAILYLAB CBC - COMP BLD CT W/AUTO DIFF [HEME] DAILYLAB Objective Vital Signs: Vital Signs - 24 hr 03/17/22 03/17/22 03/17/22 16:00 21:41 23:29 Temperature 36.8 C 36.7 C 36.7 C Heart Rate [ 57 L 64 91 Brachial] Respiratory 19 20 18 Rate Blood Pressure 97/39 L 117/50 L [Left Brachial artery] Blood Pressure 147/85 H [Right Brachial artery] O2 Saturation 97 96 100 03/18/22 03/18/22 04:59 07:18 Temperature 36.4 C L 36.4 C L Heart Rate [ 62 74 Brachial] Respiratory 16 16 Rate Blood Pressure [Left Brachial artery] Blood Pressure 152/85 H 122/73 [Right Brachial artery] O2 Saturation 100 96 Oxygen O2 Source Room air I&O (Last 24 Hrs): Intake and Output Totals x24h 03/16/22 03/17/22 03/18/22 23:59 23:59 23:59 Intake Total 1151 2920.000 230 Output Total 518 300 Balance 1151 2402.000 -70 General: Alert, Oriented x3, Mild distress, Moderate distress HEENT: PERRLA, EOMI Neck: Supple, No JVD Neuro: Alert, Non Focal, Oriented Times 3 Cardiovascular: Regular rate, Normal S1, Normal S2 Respiratory: Chest non-tender, No respiratory distress, Breath sounds nml Abdomen: Normal bowel sounds, Soft, Other (mild abd tendernes) Extremities: No clubbing, No cyanosis, No edema Skin: No rashes, No breakdown, No significant lesion - Results Results: Laboratory Results WBC 18.7 x10^3/uL (4.8-10.8) H 03/18/22 04:24 RBC 5.18 10^6/uL (4.70-6.10) 03/18/22 04:24 Hgb 16.0 g/dL (14.0-18.0) 03/18/22 04:24 Hct 45.5 % (42.0-52.0) 03/18/22 04:24 MCV 87.8 fL (80.0-94.0) 03/18/22 04:24 MCH 30.9 pg (27.0-31.0) 03/18/22 04:24 MCHC 35.2 g/dL (32.0-36.0) 03/18/22 04:24 RDW 12.7 % (12.0-15.0) 03/18/22 04:24 Plt Count 327 10^3/uL (130-450) 03/18/22 04:24 MPV 11.2 fL (7.4-11.4) 03/18/22 04:24 Neut # (Auto) 16.7 10^3/uL (1.5-6.6) H 03/18/22 04:24 Lymph # (Auto) 1.1 10^3/uL (1.5-3.5) L 03/18/22 04:24 [place] # (Auto) 0.9 10^3/uL (0.0-1.0) 03/18/22 04:24 Eos # (Auto) 0.0 10^3/uL (0.0-0.7) 03/18/22 04:24 Baso # (Auto) 0.0 10^3/uL (0.0-0.1) 03/18/22 04:24 Absolute Nucleated RBC 0.00 x10^3/uL 03/18/22 04:24 Nucleated RBC % 0.0 /100WBC 03/18/22 04:24 Sodium 142 mmol/L (135-145) 03/18/22 04:24 Potassium 3.7 mmol/L (3.5-5.0) 03/18/22 04:24 Chloride 108 mmol/L (101-111) 03/18/22 04:24 Carbon Dioxide 24 mmol/L (21-32) 03/18/22 04:24 Anion Gap 10.0 (6-13) 03/18/22 04:24 BUN 13 mg/dL (6-20) 03/18/22 04:24 Creatinine 1.0 mg/dL (0.6-1.2) 03/18/22 04:24 Estimated GFR (MDRD) 89 (>89) 03/18/22 04:24 Glucose 141 mg/dL (70-100) H 03/18/22 04:24 Calcium 9.1 mg/dL (8.5-10.3) 03/18/22 04:24 Phosphorus 4.0 mg/dL (2.5-4.6) 03/17/22 06:19 Magnesium 2.4 mg/dL (1.7-2.8) 03/17/22 06:19 Total Bilirubin 1.1 mg/dL (0.2-1.0) H 03/16/22 18:32 AST 36 IU/L (10-42) 03/16/22 18:32 ALT 38 IU/L (10-60) 03/16/22 18:32 Alkaline Phosphatase 51 IU/L (42-121) 03/16/22 18:32 Total Protein 8.7 g/dL (6.7-8.2) H 03/16/22 18:32 Albumin 5.2 g/dL (3.2-5.5) 03/16/22 18:32 Globulin 3.5 g/dL (2.1-4.2) 03/16/22 18:32 Albumin/Globulin Ratio 1.5 (1.0-2.2) 03/16/22 18:32 Lipase 40 U/L (22-51) 03/16/22 18:32 Urine Color YELLOW 03/16/22 20:20 Urine Clarity CLEAR (CLEAR) 03/16/22 20:20 Urine pH 6.5 PH (5.0-7.5) 03/16/22 20:20 Ur Specific [place] 1.010 (1.002-1.030) 03/16/22 20:20 Urine Protein NEGATIVE mg/dL (NEGATIVE) 03/16/22 20:20 Urine Glucose (UA) NEGATIVE mg/dL (NEGATIVE) 03/16/22 20:20 Urine Ketones >=80 mg/dL (NEGATIVE) H 03/16/22 20:20 Urine Occult Blood NEGATIVE (NEGATIVE) 03/16/22 20:20 Urine Nitrite NEGATIVE (NEGATIVE) 03/16/22 20:20 Urine Bilirubin NEGATIVE (NEGATIVE) 03/16/22 20:20 Urine Urobilinogen 0.2 (NORMAL) E.U./dL (NORMAL) 03/16/22 20:20 Ur Leukocyte Esterase NEGATIVE (NEGATIVE) 03/16/22 20:20 Ur Microscopic Review NOT INDICATED 03/16/22 20:20 Urine Culture Comments NOT INDICATED 03/16/22 20:20 Urine Opiates Screen POSITIVE (NEGATIVE) H 03/16/22 20:20 Ur Oxycodone Screen NEGATIVE (NEGATIVE) 03/16/22 20:20 Urine Methadone Screen NEGATIVE (NEGATIVE) 03/16/22 20:20 Ur Propoxyphene Screen NEGATIVE (NEGATIVE) 03/16/22 20:20 Ur Barbiturates Screen NEGATIVE (NEGATIVE) 03/16/22 20:20 Ur Tricyclics Screen NEGATIVE (NEGATIVE) 03/16/22 20:20 Ur Phencyclidine Scrn NEGATIVE (NEGATIVE) 03/16/22 20:20 Ur Amphetamine Screen NEGATIVE (NEGATIVE) 03/16/22 20:20 U Methamphetamines Scrn NEGATIVE (NEGATIVE) 03/16/22 20:20 U Benzodiazepines Scrn NEGATIVE (NEGATIVE) 03/16/22 20:20 Urine Cocaine Screen NEGATIVE (NEGATIVE) 03/16/22 20:20 U Cannabinoids Screen POSITIVE (NEGATIVE) H 03/16/22 20:20 SARS-CoV-2 (PCR) NOT DETECTED 03/16/22 20:31 ABX Reporting Has patient been on IV antibiotics over the past 48 hours?: No
[2022-03-18] MEDS: SODIUM CHLORIDE FLUSH 0.9% 10 ML SYRINGE IVP SCH ×2 (07:57→12:20)
[2022-03-18] MEDS: CALCIUM CARBONATE CHEW 500 MG TABLET PO PRN ×2 (15:41→22:28)
[2022-03-19] MEDS: BACITRACIN ZINC OINT 1 PACKET TOP SCH ×2 (00:29→21:11)
[2022-03-19] MEDS: SODIUM CHLORIDE FLUSH 0.9% 10 ML SYRINGE IVP SCH ×4 (00:45→23:57)
[2022-03-19] MEDS ORDERED: BACITRACIN ZINC OINT 1 PACKET TOP SCH (01:00)
[2022-03-19 04:37] LABS: BASOPHILS # (AUTO) 0.1 10^3/uL (0.0-0.1); BASOPHILS % (AUTO) 0.6 %; EOSINOPHILS % (AUTO) 0.4 %; HCT - HEMATOCRIT 44.5 % (42.0-52.0); HGB - HEMOGLOBIN 15.5 g/dL (14.0-18.0); LYMPHOCYTES # (AUTO) 2.8 10^3/uL (1.5-3.5); LYMPHOCYTES % (AUTO) 26.7 %; MEAN CORPUSCULAR HEMOGLOBIN 30.9 pg (27.0-31.0); MEAN CORPUSCULAR HGB CONC 34.8 g/dL (32.0-36.0); MEAN CORPUSCULAR VOLUME 88.6 fL (80.0-94.0); MONOCYTES # (AUTO) 0.8 10^3/uL (0.0-1.0); MONOCYTES % (AUTO) 7.4 %; NEUTROPHILS # (AUTO) 6.8 10^3/uL (1.5-6.6); NEUTROPHILS % (AUTO) 64.7 %; PLT - PLATELET COUNT 275 10^3/uL (130-450); RED BLOOD COUNT 5.02 10^6/uL (4.70-6.10); RED CELL DISTRIBUTION WIDTH 12.7 % (12.0-15.0); WHITE BLOOD COUNT 10.5 x10^3/uL (4.8-10.8)
[2022-03-19 04:47] LABS: POTASSIUM 3.6 mmol/L (3.5-5.0)
[2022-03-19] MEDS: D5NS W/20 MEQ KCL 1,000 ML IV SCH ×2 (05:28→15:40)
[2022-03-19] MEDS: FAMOTIDINE 20 MG TABLET PO SCH ×2 (08:30→19:28)
[2022-03-19] MEDS: ONDANSETRON 4 MG/2 ML VIAL IVP PRN ×3 (08:33→21:42)
[2022-03-19] MEDS: PROCHLORPERAZINE 10 MG/2 ML VIAL IVP PRN ×3 (09:31→23:53)
[2022-03-19] MEDS ORDERED: LORazepam 2 MG/ML VIAL IVP STA (10:11)
[2022-03-19] MEDS ORDERED: IOPAMIDOL-300 100 ML VIAL ONE (10:30)
[2022-03-19] MEDS: METOCLOPRAMIDE 10 MG/2 ML VIAL IVP PRN ×3 (10:50→23:53)
[2022-03-19] MEDS ORDERED: HYDROmorphone 0.5 MG/0.5 ML SYRINGE IVP STA (11:37)
--- NOTE | 2022-03-19 15:28 | PROVIDER PROGRESS NOTE ---
Assessment/Plan - Problem List (1) Intractable vomiting Assessment/Plan: Initially it was suspected to be secondary to marijuana use only. However patient's UDS was positive for THC and opiates despite not being prescribed or given opiates at the time of admission. It is possible patient is also withdrawing from opiates. This possibility is further supported by the fact that his symptoms seem to resolve completely when administered a dose of Dilaudid 0.5 mg IV x1. Will continue Zofran, Phenergan, Reglan and Ativan as needed for nausea and vomiting. Will continue to maintain clear liquid diet and advance as tolerated. CT of the abdomen/pelvis ordered for repeat on 03/19/2022 to reevaluate. Results pending. Anticipate discharge once patient is able to tolerate a diet beyond clear liquid diet. (2) MANJIT (acute kidney injury) Assessment/Plan: Resolved. Likely prerenal from nausea vomiting. (3) Elevated WBC count Assessment/Plan: Resolved. Likely reactive. White blood cell count yesterday was 18.5. Today it is 10.5. (4) Hypokalemia due to excessive gastrointestinal loss of potassium Assessment/Plan: Secondary to nausea and vomiting. Replaced. Resolved. We will continue to check by monitoring BMP. (5) Abdominal pain Qualifiers: Abdominal location: generalized Qualified Code(s): R10.84 - Generalized abdominal pain Assessment/Plan: This is likely from excessive vomiting. CT of the abdomen on 03/16/[address] of the abdomen/pelvis with contrast today 03/19/22 due to significant/persistence of nausea and vomiting Which is exacerbated by the attempt to advance diet. Treating underlying nausea vomiting with antiemetics. - Current Meds Current Meds: Current Medications Generic Name Dose Route Start Last Admin Trade Name Freq PRN Reason Stop Dose Admin Bacitracin 1 packet 03/19/22 00:20 03/19/22 00:29 Bacitracin Zinc Oint 1 Packet TOP 1 packet QPM SHEKHAR Administration Calcium Carbonate/Glycine 500 mg 03/18/22 13:40 03/18/22 22:28 Calcium Carbonate Chew 500 Mg Tablet PO 500 mg TID PRN Administration Heartburn Famotidine 20 mg 03/17/22 23:00 03/19/22 08:30 Famotidine 20 Mg Tablet PO 20 mg BID SHEKHAR Administration Potassium Chloride/Dextrose/Sod Cl 1,000 mls @ 100 mls/hr 03/16/22 22:00 03/19/22 05:28 D5ns W/20 Meq Kcl IV 100 mls/hr .Q10H SHEKHAR Administration Promethazine HCl 25 mg/ Sodium 51 mls @ 100 mls/hr 03/17/22 08:14 03/17/22 11:20 Chloride IV Infused Q6H PRN Infusion Nausea / Vomiting Lorazepam 0.5 mg 03/17/22 22:48 03/18/22 00:22 Lorazepam 0.5 Mg Tablet PO 0.5 mg BID PRN Administration Insomnia Metoclopramide HCl 5 mg 03/17/22 08:14 03/19/22 10:50 Metoclopramide 10 Mg/2 Ml Vial IVP 5 mg Q6HR PRN Administration Nausea / Vomiting Ondansetron HCl 4 mg 03/16/22 21:47 03/19/22 08:33 Ondansetron 4 Mg/2 Ml Vial IVP 4 mg Q6HR PRN Administration Nausea / Vomiting Prochlorperazine Edisylate 10 mg 03/16/22 21:47 03/19/22 09:31 Prochlorperazine 10 Mg/2 Ml Vial IVP 10 mg Q6HR PRN Administration Nausea / Vomiting Sodium Chloride 10 ml 03/16/22 21:47 03/17/22 15:04 Sodium Chloride Flush 0.9% 10 Ml Syringe IVP 10 ml PRN PRN Administration NEEDED PER PROVIDER ORDERS Sodium Chloride 10 ml 03/17/22 01:00 03/19/22 00:45 Sodium Chloride Flush 0.9% 10 Ml Syringe IVP 10 ml 0100,0900,1700 SHEKHAR Administration Throat Lozenges 1 lozenge 03/18/22 00:24 03/18/22 22:28 Benzocaine/Menthol Lozenge MM 1 lozenge Q2HR PRN Administration Throat pain - Lab Result Fish Bone Diagrams: 03/19/22 04:13 03/19/22 04:13 - Additional Planning My Orders: My Active Orders 03/19/22 10:11 ABDOMEN/PELVIS W [CT] Stat 03/19/22 Lunch Full Liquid Diet [DIET] 03/20/22 05:00 BMP - BASIC METABOLIC PANEL [CHEM] DAILYLAB CBC - COMP BLD CT W/AUTO DIFF [HEME] DAILYLAB Subjective - Subjective Patient Reports: Other (Attempt to advance patient's diet from n.p.o. to clear liquid diet significantly worsened his symptoms. He was retching all morning. He reports having a bowel movement though small in amount and reported urinating as well.) Objective Vital Signs: Vital Signs - 24 hr 03/18/22 03/18/22 03/19/22 15:49 23:20 08:00 Temperature 36.9 C 36.8 C 36.4 C L Heart Rate [ 60 75 54 L Brachial] Respiratory 18 18 16 Rate Blood Pressure 147/72 H 134/76 H 124/72 [Right Brachial artery] O2 Saturation 95 96 98 Oxygen O2 Source Room air I&O (Last 24 Hrs): Intake and Output Totals x24h 03/17/22 03/18/22 03/19/22 23:59 23:59 23:59 Intake Total 2920.000 2230.000 1480 Output Total 518 300 300 Balance 2402.000 3380.383 9146 Comments/Notes: General: Alert, Oriented x3, Moderate distress HEENT: PERRLA, EOMI Neck: Supple, No JVD Neuro: Alert, Non Focal, Oriented Times 3 Cardiovascular: Regular rate, Normal S1, Normal S2 Respiratory: Chest non-tender, No respiratory distress, Breath sounds nml Abdomen: Normal bowel sounds, Soft Extremities: No clubbing, No cyanosis, No edema, No tenderness/swelling Skin: No rashes, No breakdown, No significant lesion - Results Results: Laboratory Results WBC 10.5 x10^3/uL (4.8-10.8) 03/19/22 04:13 RBC 5.02 10^6/uL (4.70-6.10) 03/19/22 04:13 Hgb 15.5 g/dL (14.0-18.0) 03/19/22 04:13 Hct 44.5 % (42.0-52.0) 03/19/22 04:13 MCV 88.6 fL (80.0-94.0) 03/19/22 04:13 MCH 30.9 pg (27.0-31.0) 03/19/22 04:13 MCHC 34.8 g/dL (32.0-36.0) 03/19/22 04:13 RDW 12.7 % (12.0-15.0) 03/19/22 04:13 Plt Count 275 10^3/uL (130-450) 03/19/22 04:13 MPV 11.0 fL (7.4-11.4) 03/19/22 04:13 Neut # (Auto) 6.8 10^3/uL (1.5-6.6) H 03/19/22 04:13 Lymph # (Auto) 2.8 10^3/uL (1.5-3.5) 03/19/22 04:13 [place] # (Auto) 0.8 10^3/uL (0.0-1.0) 03/19/22 04:13 Eos # (Auto) 0.0 10^3/uL (0.0-0.7) 03/19/22 04:13 Baso # (Auto) 0.1 10^3/uL (0.0-0.1) 03/19/22 04:13 Absolute Nucleated RBC 0.00 x10^3/uL 03/19/22 04:13 Nucleated RBC % 0.0 /100WBC 03/19/22 04:13 Sodium 139 mmol/L (135-145) 03/19/22 04:13 Potassium 3.6 mmol/L (3.5-5.0) 03/19/22 04:13 Chloride 106 mmol/L (101-111) 03/19/22 04:13 Carbon Dioxide 23 mmol/L (21-32) 03/19/22 04:13 Anion Gap 10.0 (6-13) 03/19/22 04:13 BUN 11 mg/dL (6-20) 03/19/22 04:13 Creatinine 1.0 mg/dL (0.6-1.2) 03/19/22 04:13 Estimated GFR (MDRD) 89 (>89) 03/19/22 04:13 Glucose 109 mg/dL (70-100) H 03/19/22 04:13 Calcium 9.0 mg/dL (8.5-10.3) 03/19/22 04:13 Phosphorus 4.0 mg/dL (2.5-4.6) 03/17/22 06:19 Magnesium 2.4 mg/dL (1.7-2.8) 03/17/22 06:19 Total Bilirubin 1.1 mg/dL (0.2-1.0) H 03/16/22 18:32 AST 36 IU/L (10-42) 03/16/22 18:32 ALT 38 IU/L (10-60) 03/16/22 18:32 Alkaline Phosphatase 51 IU/L (42-121) 03/16/22 18:32 Total Protein 8.7 g/dL (6.7-8.2) H 03/16/22 18:32 Albumin 5.2 g/dL (3.2-5.5) 03/16/22 18:32 Globulin 3.5 g/dL (2.1-4.2) 03/16/22 18:32 Albumin/Globulin Ratio 1.5 (1.0-2.2) 03/16/22 18:32 Lipase 40 U/L (22-51) 03/16/22 18:32 Urine Color YELLOW 03/16/22 20:20 Urine Clarity CLEAR (CLEAR) 03/16/22 20:20 Urine pH 6.5 PH (5.0-7.5) 03/16/22 20:20 Ur Specific [place] 1.010 (1.002-1.030) 03/16/22 20:20 Urine Protein NEGATIVE mg/dL (NEGATIVE) 03/16/22 20:20 Urine Glucose (UA) NEGATIVE mg/dL (NEGATIVE) 03/16/22 20:20 Urine Ketones >=80 mg/dL (NEGATIVE) H 03/16/22 20:20 Urine Occult Blood NEGATIVE (NEGATIVE) 03/16/22 20:20 Urine Nitrite NEGATIVE (NEGATIVE) 03/16/22 20:20 Urine Bilirubin NEGATIVE (NEGATIVE) 03/16/22 20:20 Urine Urobilinogen 0.2 (NORMAL) E.U./dL (NORMAL) 03/16/22 20:20 Ur Leukocyte Esterase NEGATIVE (NEGATIVE) 03/16/22 20:20 Ur Microscopic Review NOT INDICATED 03/16/22 20:20 Urine Culture Comments NOT INDICATED 03/16/22 20:20 Urine Opiates Screen POSITIVE (NEGATIVE) H 03/16/22 20:20 Ur Oxycodone Screen NEGATIVE (NEGATIVE) 03/16/22 20:20 Urine Methadone Screen NEGATIVE (NEGATIVE) 03/16/22 20:20 Ur Propoxyphene Screen NEGATIVE (NEGATIVE) 03/16/22 20:20 Ur Barbiturates Screen NEGATIVE (NEGATIVE) 03/16/22 20:20 Ur Tricyclics Screen NEGATIVE (NEGATIVE) 03/16/22 20:20 Ur Phencyclidine Scrn NEGATIVE (NEGATIVE) 03/16/22 20:20 Ur Amphetamine Screen NEGATIVE (NEGATIVE) 03/16/22 20:20 U Methamphetamines Scrn NEGATIVE (NEGATIVE) 03/16/22 20:20 U Benzodiazepines Scrn NEGATIVE (NEGATIVE) 03/16/22 20:20 Urine Cocaine Screen NEGATIVE (NEGATIVE) 03/16/22 20:20 U Cannabinoids Screen POSITIVE (NEGATIVE) H 03/16/22 20:20 SARS-CoV-2 (PCR) NOT DETECTED 03/16/22 20:31 ABX Reporting Has patient been on IV antibiotics over the past 48 hours?: No
[2022-03-19] MEDS: CALCIUM CARBONATE CHEW 500 MG TABLET PO PRN (16:53)
--- NOTE | 2022-03-19 17:38 | CT Report ---
PROCEDURE: Abdomen/Pelvis W INDICATIONS: persistent nausea and vomiting CONTRAST: IV CONTRAST: Isovue 300 ml: 100 PO CONTRAST: *NO PO CONTRAST TECHNIQUE: After the administration of intravenous contrast, 5 mm thick sections acquired from the diaphragms to the symphysis. 5 mm thick coronal and sagittal reformats were acquired. For radiation dose reducti on, the following was used: automated exposure control, adjustment of mA and/or kV according to ofelia ent size. COMPARISON: 03/13/2022 and 03/16/2022 FINDINGS: Image quality: Excellent. ABDOMEN: Lung bases: Lung bases are clear. Heart size is normal. Solid organs: Liver and spleen are normal in size and enhancement. Gallbladder is normal. Biliary system is non dilated. Pancreas enhances normally. No adrenal nodules. Kidneys demonstrate normal size and enhancement, without hydronephrosis. Peritoneum and bowel: Bowel loops demonstrate normal wall thickness and caliber. No free fluid or a ir. Nodes and vessels: No retroperitoneal or mesenteric adenopathy by size criteria. Aorta and inferior vena cava are normal in size. Miscellaneous: No ventral hernias. PELVIS: Genitourinary: Bladder wall thickness is normal. Miscellaneous: No inguinal hernias or adenopathy. Bones: No suspicious bony lesions. No vertebral body compression fractures. IMPRESSION: No acute finding. Reviewed by: Linden Fletcher MD on 03/19/2022 5:37 PM PDT Approved by: Linden Fletcher MD on 03/19/2022 5:37 PM PDT Station ID: [id number]
[2022-03-19] MEDS ORDERED: PROMETHAZINE 25 MG/1 ML VIAL ONE (20:07)
[2022-03-19] MEDS: LORazepam 0.5 MG TABLET PO PRN (20:11)
[2022-03-19] MEDS: PROMETHAZINE INJ 25 MG in SODIUM CHLORIDE 0.9% 50 ML IV PRN (20:13)
[2022-03-19] MEDS ORDERED: IOPAMIDOL-300 100 ML VIAL IVP ONE (22:04)
[2022-03-20] MEDS: D5NS W/20 MEQ KCL 1,000 ML IV SCH (02:12)
[2022-03-20] MEDS: ONDANSETRON 4 MG/2 ML VIAL IVP PRN (03:45)
[2022-03-20 05:19] LABS: BASOPHILS % (AUTO) 0.4 %; EOSINOPHILS % (AUTO) 0.3 %; HCT - HEMATOCRIT 44.6 % (42.0-52.0); HGB - HEMOGLOBIN 15.8 g/dL (14.0-18.0); LYMPHOCYTES # (AUTO) 2.5 10^3/uL (1.5-3.5); LYMPHOCYTES % (AUTO) 25.6 %; MEAN CORPUSCULAR HEMOGLOBIN 30.9 pg (27.0-31.0); MEAN CORPUSCULAR HGB CONC 35.4 g/dL (32.0-36.0); MEAN CORPUSCULAR VOLUME 87.1 fL (80.0-94.0); MEAN PLATELET VOLUME 11.1 fL (7.4-11.4); MONOCYTES # (AUTO) 0.9 10^3/uL (0.0-1.0); MONOCYTES % (AUTO) 8.8 %; NEUTROPHILS # (AUTO) 6.2 10^3/uL (1.5-6.6); NEUTROPHILS % (AUTO) 64.6 %; PLT - PLATELET COUNT 297 10^3/uL (130-450); RED BLOOD COUNT 5.12 10^6/uL (4.70-6.10); RED CELL DISTRIBUTION WIDTH 12.2 % (12.0-15.0); WHITE BLOOD COUNT 9.6 x10^3/uL (4.8-10.8)
[2022-03-20 05:26] LABS: CALCIUM 9.2 mg/dL (8.5-10.3); POTASSIUM 3.4 mmol/L (3.5-5.0)
[2022-03-20] MEDS: METOCLOPRAMIDE 10 MG/2 ML VIAL IVP PRN (06:05)
[2022-03-20] MEDS ORDERED: POTASSIUM CHLORIDE 20 MEQ TABLET PO ONE (08:10)
[2022-03-20] MEDS: CALCIUM CARBONATE CHEW 500 MG TABLET PO PRN ×2 (09:09→16:00)
[2022-03-20] MEDS: PANTOPRAZOLE 40 MG TABLET PO SCH (09:10)
[2022-03-20] MEDS: FAMOTIDINE 20 MG TABLET PO SCH ×2 (09:10→19:24)
[2022-03-20] MEDS: PROCHLORPERAZINE 10 MG/2 ML VIAL IVP PRN (09:16)
[2022-03-20] MEDS ORDERED: PROMETHAZINE INJ 25 MG in SODIUM CHLORIDE 0.9% 50 ML IV STA (10:05)
--- NOTE | 2022-03-20 10:33 | PROVIDER PROGRESS NOTE ---
Subjective - Prog Note Date Prog Note Date: 03/20/22 - Subjective Subjective: He does not feel any better. Has had emesis yesterday after dinner and this morning continues to have significant nausea. He has [place] of breakfast before he had 4-5 episodes of emesis. He complains of heartburn but no abdominal pain. He states his last use of marijuana was 2 to 3 weeks ago. He was previously using on a daily basis for about a month. He denies any narcotic use. Last bowel movement was yesterday evening. Current Medications - Current Medications Current Medications: Active Medications Bacitracin (Bacitracin Zinc Oint 1 Packet) 1 packet TOP QPM [facility] Last Admin: 03/19/22 21:11 Dose: 1 packet Calcium Carbonate/Glycine (Calcium Carbonate Chew 500 Mg Tablet) 500 mg PO TID PRN PRN Reason: Heartburn Last Admin: 03/20/22 09:09 Dose: 500 mg Famotidine (Famotidine 20 Mg Tablet) 20 mg PO BID [facility] Last Admin: 03/20/22 09:10 Dose: 20 mg Promethazine HCl 25 mg/ Sodium (Chloride) 51 mls @ 100 mls/hr IV ONCE STA Stop: 03/20/22 10:35 Ondansetron HCl (Ondansetron 4 Mg/2 Ml Vial) 4 mg IVP Q6HR PRN PRN Reason: Nausea / Vomiting Last Admin: 03/20/22 03:45 Dose: 4 mg Pantoprazole Sodium (Pantoprazole 40 Mg Tablet) 40 mg PO QDAC [facility] Last Admin: 03/20/22 09:10 Dose: 40 mg Prochlorperazine Edisylate (Prochlorperazine 10 Mg/2 Ml Vial) 10 mg IVP Q6HR PRN PRN Reason: Nausea / Vomiting Last Admin: 03/20/22 09:16 Dose: 10 mg Sodium Chloride (Sodium Chloride Flush 0.9% 10 Ml Syringe) 10 ml IVP PRN PRN PRN Reason: NEEDED PER PROVIDER ORDERS Last Admin: 03/17/22 15:04 Dose: 10 ml Sodium Chloride (Sodium Chloride Flush 0.9% 10 Ml Syringe) 10 ml IVP 0100,0900,1700 [facility] Last Admin: 03/19/22 23:57 Dose: 10 ml Throat Lozenges (Benzocaine/Menthol Lozenge) 1 lozenge MM Q2HR PRN PRN Reason: Throat pain Last Admin: 03/18/22 22:28 Dose: 1 lozenge Famotidine [Pepcid] 20 mg PO DAILY 03/13/22 Ondansetron Odt [Zofran Odt] 4 mg TL Q6H PRN 03/16/22 Objective - Vital Signs/Intake & Output Reviewed Vital Signs: Yes Vital Signs: Vital Signs x48h Temp Pulse Resp BP Pulse Ox 03/20/22 08:25 36.6 C 104 H 16 108/60 98 Intake & Output: Intake & Output 03/17/22 03/18/22 03/19/22 03/20/22 23:59 23:59 23:59 23:59 Intake Total 2920.000 2230.000 3502.667 265 Output Total 518 300 300 Balance 2402.000 8965.320 6633.667 265 - Objective General Appearance: positive: Alert, Mild distress Eyes Bilateral: positive: Conjunctivae nml ENT: positive: ENT inspection nml Neck: positive: Nml inspection Respiratory: positive: No respiratory distress. negative: Wheezes, Rales Cardiovascular: positive: Regular rate & rhythm, No murmur. negative: Tachycardia Abdomen: positive: Non-tender, Nml bowel sounds, No distention. negative: Tenderness - Lab Results Fish Bones: 03/20/22 04:20 03/20/22 04:20 Other Labs: Lab Results x24hrs 03/20/22 03/20/22 Range/Units 04:20 04:20 WBC 9.6 (4.8-10.8) x10^3/uL RBC 5.12 (4.70-6.10) 10^6/uL Hgb 15.8 (14.0-18.0) g/dL Hct 44.6 (42.0-52.0) % MCV 87.1 (80.0-94.0) fL MCH 30.9 (27.0-31.0) pg MCHC 35.4 (32.0-36.0) g/dL RDW 12.2 (12.0-15.0) % Plt Count 297 (130-450) 10^3/uL MPV 11.1 (7.4-11.4) fL Neut # (Auto) 6.2 (1.5-6.6) 10^3/uL Lymph # (Auto) 2.5 (1.5-3.5) 10^3/uL [place] # (Auto) 0.9 (0.0-1.0) 10^3/uL Eos # (Auto) 0.0 (0.0-0.7) 10^3/uL Baso # (Auto) 0.0 (0.0-0.1) 10^3/uL Absolute Nucleated RBC 0.00 x10^3/uL Nucleated RBC % 0.0 /100WBC Sodium 141 (135-145) mmol/L Potassium 3.4 L (3.5-5.0) mmol/L Chloride 106 (101-111) mmol/L Carbon Dioxide 25 (21-32) mmol/L Anion Gap 10.0 (6-13) BUN 9 (6-20) mg/dL Creatinine 1.0 (0.6-1.2) mg/dL Estimated GFR (MDRD) 89 (>89) Glucose 100 (70-100) mg/dL Calcium 9.2 (8.5-10.3) mg/dL Assessment/Plan - Problem List (1) Intractable vomiting Impression: This continues to be an ongoing problem. It is unclear if is related to his marijuana use or due to a GI pathology. Repeat CT showed no acute abnormalities. He has continued to have multiple episodes of emesis this morning. I have consulted general surgery and we will plan for endoscopy in the morning. We will continue with clear liquid diet but he will be made n.p.o. at midnight. Continue with Compazine and Zofran as needed for nausea. Continue with D5 half-normal saline. (2) Hypokalemia due to excessive gastrointestinal loss of potassium Impression: Ongoing but improved. We will continue supplement this intravenously given his ongoing emesis. We will check a magnesium level. (3) MANJIT (acute kidney injury) Impression: This is resolved and was secondary to volume depletion. Renal function is back to baseline. (4) Elevated WBC count Impression: This was likely reactive and has since resolved.
[2022-03-20] MEDS: SODIUM CHLORIDE FLUSH 0.9% 10 ML SYRINGE IVP SCH ×2 (11:22→15:58)
[2022-03-20] MEDS ORDERED: DEXTROSE 5%-0.45% NACL 1,000 ML IV SCH (15:00)
--- NOTE | 2022-03-20 15:25 | CONSULTATION NOTE ---
Referring Provider Consult Date: 03/20/22 History of Present Illness - History Obtained From Records Reviewed: yes History obtained from: pt Exam Limitations: none - History of Present Illness HPI Comment/Other: 4 days nausea and retching. denies abdominal pain other than from retching. no pain on swallowing or trouble swallowing. he used to have heart burn. he started an antacid a couple months ago and has been improved. wbc was elevated. he has had [address] scans which are normal. 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 Quit smoking cigarettes 3 years ago. Uses cannabis intermittently, he claims the last use was 2 weeks ago. He drinks no alcohol. - Substance History Use: Uses substance without health or social issues: Cannabis - POLST Patient has POLST: No Meds/Allgy - Home Medications Home Medications: Ambulatory Orders Medication Instructions Recorded Confirmed Famotidine [Pepcid] 20 mg PO DAILY 03/13/22 03/16/22 Ondansetron Odt [Zofran Odt] 4 mg TL Q6H PRN 03/16/22 03/16/22 - Allergies Allergies/Adverse Reactions: Allergies Allergy/AdvReac Type Severity Reaction Status Date / Time No Known Drug Allergies Allergy Verified 03/13/22 21:16 Review of Systems - Constitutional Constitutional: reports: Fatigue (10 pt ros as above otherwise unremarkable) Exam - Vital Signs Reviewed Vital Signs: Yes Vital Signs: Vital Signs x48h Temp Pulse Resp BP Pulse Ox 03/20/22 08:25 36.6 C 104 H 16 108/60 98 - Physical Exam General Appearance: positive: No acute distress, Alert Eyes Bilateral: positive: PERRL, EOMI, No scleral icterus ENT: positive: No signs of dehydration Neck: positive: No JVD, Trachea midline Respiratory: positive: No respiratory distress Abdomen: positive: Non-tender, No distention Neurologic/Psychiatric: positive: Oriented x3 Conclusion/Plan - Problem List (1) Intractable vomiting Conclusion/Plan: agree with care and plan. plan upper endoscopy tomorrow 1 pm. discussed with patient. parq held and consent obtained - Lab Results Fish Bones: 03/20/22 04:20 03/20/22 04:20
[2022-03-20] MEDS: BACITRACIN ZINC OINT 1 PACKET TOP SCH (21:07)
[2022-03-21] MEDS: SODIUM CHLORIDE FLUSH 0.9% 10 ML SYRINGE IVP SCH ×3 (01:00→16:15)
[2022-03-21 05:23] LABS: BASOPHILS % (AUTO) 0.5 %; EOSINOPHILS # (AUTO) 0.1 10^3/uL (0.0-0.7); EOSINOPHILS % (AUTO) 1.4 %; HCT - HEMATOCRIT 45.2 % (42.0-52.0); HGB - HEMOGLOBIN 15.8 g/dL (14.0-18.0); LYMPHOCYTES # (AUTO) 2.3 10^3/uL (1.5-3.5); LYMPHOCYTES % (AUTO) 28.2 %; MEAN CORPUSCULAR HEMOGLOBIN 30.6 pg (27.0-31.0); MEAN CORPUSCULAR VOLUME 87.4 fL (80.0-94.0); MEAN PLATELET VOLUME 10.9 fL (7.4-11.4); MONOCYTES # (AUTO) 0.8 10^3/uL (0.0-1.0); NEUTROPHILS % (AUTO) 59.7 %; PLT - PLATELET COUNT 284 10^3/uL (130-450); RED BLOOD COUNT 5.17 10^6/uL (4.70-6.10); RED CELL DISTRIBUTION WIDTH 12.4 % (12.0-15.0); WHITE BLOOD COUNT 8.3 x10^3/uL (4.8-10.8)
[2022-03-21 05:39] LABS: BILIRUBIN,DIRECT 0.5 mg/dL (0.1-0.5); BILIRUBIN,TOTAL 1.7 mg/dL (0.2-1.0); CALCIUM 8.8 mg/dL (8.5-10.3); MAGNESIUM 1.9 mg/dL (1.7-2.8); POTASSIUM 3.1 mmol/L (3.5-5.0); TOTAL PROTEIN 6.9 g/dL (6.7-8.2)
[2022-03-21] MEDS: PANTOPRAZOLE 40 MG TABLET PO SCH (05:46)
[2022-03-21] MEDS: POTASSIUM CHLOR 10 MEQ/100 ML 10 MEQ/100 ML BAG IV SCH ×4 (07:51→16:08)
[2022-03-21] MEDS: FAMOTIDINE 20 MG TABLET PO SCH (08:05)
--- NOTE | 2022-03-21 11:09 | ANESTHESIA ---
Pre-Anesthesia VS, & Labs - Diagnosis nausea/vomiting - Procedure EGD with biopsy Vital Signs: Temp Pulse Resp BP Pulse Ox 36.7 C 65 18 125/69 96 03/21/22 08:00 03/21/22 08:00 03/21/22 08:00 03/21/22 08:00 03/21/22 00:00 Height: 6 ft 3 in Weight (kg): 117.5 kg Body Mass Index: 32.3 BMI Classification: Obese - NPO >8 hours - Lab Results Current Lab Results: Laboratory Tests 03/21/22 04:33: Sodium 136, Potassium 3.1 L, Chloride 103, Carbon Dioxide 25, Anion Gap 8.0, BUN 10, Creatinine 1.0, Estimated GFR (MDRD) 89, Glucose 98, Calcium 8.8, Magnesium 1.9, Total Bilirubin 1.7 H, Direct Bilirubin 0.5, AST 56 H, ALT 117 H, Alkaline Phosphatase 53, Total Protein 6.9, Albumin 4.0, Globulin 2.9 03/21/22 04:33: WBC 8.3, RBC 5.17, Hgb 15.8, Hct 45.2, MCV 87.4, MCH 30.6, MCHC 35.0, RDW 12.4, Plt Count 284, MPV 10.9, Neut # (Auto) 5.0, Lymph # (Auto) 2.3, [place] # (Auto) 0.8, Eos # (Auto) 0.1, Baso # (Auto) 0.0, Absolute Nucleated RBC 0.00, Nucleated RBC % 0.0 03/20/22 04:20: Sodium 141, Potassium 3.4 L, Chloride 106, Carbon Dioxide 25, Anion Gap 10.0, BUN 9, Creatinine 1.0, Estimated GFR (MDRD) 89, Glucose 100, Calcium 9.2 03/20/22 04:20: WBC 9.6, RBC 5.12, Hgb 15.8, Hct 44.6, MCV 87.1, MCH 30.9, MCHC 35.4, RDW 12.2, Plt Count 297, MPV 11.1, Neut # (Auto) 6.2, Lymph # (Auto) 2.5, [place] # (Auto) 0.9, Eos # (Auto) 0.0, Baso # (Auto) 0.0, Absolute Nucleated RBC 0.00, Nucleated RBC % 0.0 03/19/22 04:13: Sodium 139, Potassium 3.6, Chloride 106, Carbon Dioxide 23, Anion Gap 10.0, BUN 11, Creatinine 1.0, Estimated GFR (MDRD) 89, Glucose 109 H, Calcium 9.0 03/19/22 04:13: WBC 10.5, RBC 5.02, Hgb 15.5, Hct 44.5, MCV 88.6, MCH 30.9, MCHC 34.8, RDW 12.7, Plt Count 275, MPV 11.0, Neut # (Auto) 6.8 H, Lymph # (Auto) 2.8, [place] # (Auto) 0.8, Eos # (Auto) 0.0, Baso # (Auto) 0.1, Absolute Nucleated RBC 0.00, Nucleated RBC % 0.0 03/18/22 04:24: Sodium 142, Potassium 3.7, Chloride 108, Carbon Dioxide 24, Anio n Gap 10.0, BUN 13, Creatinine 1.0, Estimated GFR (MDRD) 89, Glucose 141 H, Calcium 9.1 03/18/22 04:24: WBC 18.7 H, RBC 5.18, Hgb 16.0, Hct 45.5, MCV 87.8, MCH 30.9, MCHC 35.2, RDW 12.7, Plt Count 327, MPV 11.2, Neut # (Auto) 16.7 H, Lymph # (Auto) 1.1 L, [place] # (Auto) 0.9, Eos # (Auto) 0.0, Baso # (Auto) 0.0, Absolute Nucleated RBC 0.00, Nucleated RBC % 0.0 03/17/22 06:19: Sodium 140, Potassium 4.2, Chloride 107, Carbon Dioxide 22, Anion Gap 11.0, BUN 14, Creatinine 1.0, Estimated GFR (MDRD) 89, Glucose 113 H, Calcium 9.2, Phosphorus 4.0, Magnesium 2.4 03/17/22 06:19: WBC 11.2 H, RBC 5.50, Hgb 16.9, Hct 48.3, MCV 87.8, MCH 30.7, MCHC 35.0, RDW 12.4, Plt Count 382, MPV 10.8, Neut # (Auto) 8.9 H, Lymph # (Auto) 1.5, [place] # (Auto) 0.7, Eos # (Auto) 0.0, Baso # (Auto) 0.0, Absolute Nucleated RBC 0.00, Nucleated RBC % 0.0 03/16/22 20:20: Urine Opiates Screen POSITIVE H, Ur Oxycodone Screen NEGATIVE, Urine Methadone Screen NEGATIVE, Ur Propoxyphene Screen NEGATIVE, Ur Barbiturates Screen NEGATIVE, Ur Tricyclics Screen NEGATIVE, Ur Phencyclidine Scrn NEGATIVE, Ur Amphetamine Screen NEGATIVE, U Methamphetamines Scrn NEGATIVE, U Benzodiazepines Scrn NEGATIVE, Urine Cocaine Screen NEGATIVE, U Cannabinoids Screen POSITIVE H 03/16/22 18:32: Sodium 138, Potassium 3.2 L, Chloride 101, Carbon Dioxide 19 L, Anion Gap 18.0 H, BUN 19, Creatinine 1.3 H, Estimated GFR (MDRD) 66 L, Glucose 152 H, Calcium 10.0, Total Bilirubin 1.1 H, AST 36, ALT 38, Alkaline Phosphatase 51, Total Protein 8.7 H, Albumin 5.2, Globulin 3.5, Albumin/Globulin Ratio 1.5, Lipase 40 03/16/22 18:32: WBC 15.3 H, RBC 5.90, Hgb 17.8, Hct 50.4, MCV 85.4, MCH 30.2, MCHC 35.3, RDW 11.9 L, Plt Count 498 H, MPV 10.6, Neut # (Auto) 11.6 H, Lymph # (Auto) 2.7, [place] # (Auto) 0.9, Eos # (Auto) 0.0, Baso # (Auto) 0.1, Absolute Nucleated RBC 0.00, Nucleated RBC % 0.0 Fish Bones: 03/21/22 04:33 03/21/22 04:33 Home Medications and Allergies Home Medications: Ambulatory Orders Ondansetron Odt [Zofran Odt] 4 mg TL Q6H PRN 03/16/22 Active Medications Bacitracin (Bacitracin Zinc Oint 1 Packet) 1 packet TOP QPM [facility] Last Admin: 03/20/22 21:07 Dose: 1 packet Calcium Carbonate/Glycine (Calcium Carbonate Chew 500 Mg Tablet) 500 mg PO TID PRN PRN Reason: Heartburn Last Admin: 03/20/22 16:00 Dose: 500 mg Famotidine (Famotidine 20 Mg Tablet) 20 mg PO BID [facility] Last Admin: 03/21/22 08:05 Dose: 20 mg Potassium Chloride (Potassium Chloride) 10 meq in 100 mls @ 100 mls/hr IV Q1H [facility] Stop: 03/21/22 11:59 Last Admin: 03/21/22 10:56 Dose: 35 mls/hr Ondansetron HCl (Ondansetron 4 Mg/2 Ml Vial) 4 mg IVP Q6HR PRN PRN Reason: Nausea / Vomiting Last Admin: 03/20/22 03:45 Dose: 4 mg Pantoprazole Sodium (Pantoprazole 40 Mg Tablet) 40 mg PO QDAC [facility] Last Admin: 03/21/22 05:46 Dose: 40 mg Prochlorperazine Edisylate (Prochlorperazine 10 Mg/2 Ml Vial) 10 mg IVP Q6HR PRN PRN Reason: Nausea / Vomiting Last Admin: 03/20/22 09:16 Dose: 10 mg Sodium Chloride (Sodium Chloride Flush 0.9% 10 Ml Syringe) 10 ml IVP PRN PRN PRN Reason: NEEDED PER PROVIDER ORDERS Last Admin: 03/17/22 15:04 Dose: 10 ml Sodium Chloride (Sodium Chloride Flush 0.9% 10 Ml Syringe) 10 ml IVP 0100,0900,1700 [facility] Last Admin: 03/21/22 07:51 Dose: 10 ml Throat Lozenges (Benzocaine/Menthol Lozenge) 1 lozenge MM Q2HR PRN PRN Reason: Throat pain Last Admin: 03/18/22 22:28 Dose: 1 lozenge Famotidine [Pepcid] 20 mg PO DAILY 03/13/22 Ondansetron Odt [Zofran Odt] 4 mg TL Q6H PRN 03/16/22 Allergies/Adverse Reactions: Allergies Allergy/AdvReac Type Severity Reaction Status Date / Time No Known Drug Allergies Allergy Verified 03/13/22 21:16 Anes History & Medical History - Anesthetic History Anesthesia Complications: reports: No previous complications Family history of Anesthesia Complications: Denies Family history of Malignant Hyperthermia: Denies - Medical History Cardiovascular: reports: None Pulmonary: reports: None Gastrointestinal: reports: GERD Urinary: reports: None Neuro: reports: None Musculoskeletal: reports: None Endocrine/Autoimmune: reports: None Skin: reports: None Smoking Status: Former smoker History of Cancer?: No - Surgical History General: reports: Colonoscopy, EGD Exam General: Alert, Oriented x3, Cooperative Dental: WNL Mouth Openin Fingerbreadth Neck Mobility: Normal Mallampati classification: II Thyromental Distance: 4-6 cm Respiratory: Lungs clear, Normal breath sounds, No respiratory distress Cardiovascular: Regular rate Neurological: Normal speech Mental/Cognitive Status: Alert/Oriented X3, Normal for patient Cognitive Status: Within normal limits Plan Anesthesia Type: Total IV Consent for Procedure(s) Verified and Reviewed: Yes Code Status: Attempt Resuscitation ASA classification: 2-Mild systemic disease Is this case an emergency?: No
[2022-03-21] MEDS ORDERED: LIDOCAINE-MPF 2% 5 ML VIAL ONE (11:37)
[2022-03-21] MEDS ORDERED: PROPOFOL 200 MG/20 ML VIAL IVP ONE (11:37)
[2022-03-21] MEDS ORDERED: MIDAZOLAM 2 MG/2 ML VIAL ONE (11:37)
--- NOTE | 2022-03-21 13:36 | OPERATIVE REPORT ---
Operative Report - General Admit Date: 03/18/22 Procedure Date: 03/21/22 Planned Procedure: EGD Pre-Op Diagnosis: nausea and vomiting Procedure Performed: EGD with cold forcep biopsies Post Op Diagnosis: mild to moderate inflammation/ irritation distal esophagus and ge junction - Procedure Note Primary Surgeon: nikki neal Anesthesia Technique: MAC Pathology: biopsy antrum, ge jxn, and distal esophagus Estimated Blood Loss (mL): 0 Drain/Tube Type: Other (none) Indications: n/v for days. hx gerd Findings: as above. egd otherwise normal. no ulcer, stricture, hiatal hernia Complications: none
--- NOTE | 2022-03-21 13:42 | ANESTHESIA POST OP EVALUATION ---
Anesthesia Post Eval - Post Anesthesia Eval Vitals: Last Vital Signs Temp 36.7 C 03/21/22 08:00 Pulse 116 H 03/21/22 13:31 Resp 18 03/21/22 08:00 BP 93/73 03/21/22 13:31 Pulse Ox 99 03/21/22 13:31 CV Function Including HR & BP: Stable Pain Control: Satisfactory Nausea & Vomiting: Negative Mental Status: Baseline Respiratory Status: Airway Patent Hydration Status: Satisfactory Anesthesia Complications: None
--- NOTE | 2022-03-21 14:02 | PROVIDER PROGRESS NOTE ---
Subjective - Prog Note Date Prog Note Date: 03/21/22 - Subjective Subjective: He is finally starting to feel a little better. He was able to eat a little pudding yesterday for dinner without any emesis. Denies any abdominal pain. He reports no nausea this morning. Current Medications - Current Medications Current Medications: Active Medications Bacitracin (Bacitracin Zinc Oint 1 Packet) 1 packet TOP QPM [facility] Last Admin: 03/20/22 21:07 Dose: 1 packet Calcium Carbonate/Glycine (Calcium Carbonate Chew 500 Mg Tablet) 500 mg PO TID PRN PRN Reason: Heartburn Last Admin: 03/20/22 16:00 Dose: 500 mg Famotidine (Famotidine 20 Mg Tablet) 20 mg PO BID [facility] Last Admin: 03/21/22 08:05 Dose: 20 mg Ondansetron HCl (Ondansetron 4 Mg/2 Ml Vial) 4 mg IVP Q6HR PRN PRN Reason: Nausea / Vomiting Last Admin: 03/20/22 03:45 Dose: 4 mg Pantoprazole Sodium (Pantoprazole 40 Mg Tablet) 40 mg PO QDAC [facility] Last Admin: 03/21/22 05:46 Dose: 40 mg Prochlorperazine Edisylate (Prochlorperazine 10 Mg/2 Ml Vial) 10 mg IVP Q6HR PRN PRN Reason: Nausea / Vomiting Last Admin: 03/20/22 09:16 Dose: 10 mg Sodium Chloride (Sodium Chloride Flush 0.9% 10 Ml Syringe) 10 ml IVP PRN PRN PRN Reason: NEEDED PER PROVIDER ORDERS Last Admin: 03/17/22 15:04 Dose: 10 ml Sodium Chloride (Sodium Chloride Flush 0.9% 10 Ml Syringe) 10 ml IVP 0100,0900,1700 [facility] Last Admin: 03/21/22 07:51 Dose: 10 ml Throat Lozenges (Benzocaine/Menthol Lozenge) 1 lozenge MM Q2HR PRN PRN Reason: Throat pain Last Admin: 03/18/22 22:28 Dose: 1 lozenge Famotidine [Pepcid] 20 mg PO DAILY 03/13/22 Ondansetron Odt [Zofran Odt] 4 mg TL Q6H PRN 03/16/22 Objective - Vital Signs/Intake & Output Reviewed Vital Signs: Yes Vital Signs: Vital Signs x48h Temp Pulse Resp BP Pulse Ox 03/21/22 13:47 36.7 C 92 115/77 97 03/21/22 13:31 116 H 93/73 99 03/21/22 08:00 36.7 C 65 18 125/69 Intake & Output: Intake & Output 03/18/22 03/19/22 03/20/22 03/21/22 23:59 23:59 23:59 23:59 Intake Total 2230.000 3502.667 2099.499 787.501 Output Total 300 300 Balance 3308.294 6694.667 2099.499 787.501 - Objective General Appearance: positive: No acute distress, Alert Eyes Bilateral: positive: Normal inspection, Conjunctivae nml ENT: positive: ENT inspection nml Neck: positive: Nml inspection Respiratory: positive: No respiratory distress. negative: Wheezes, Rales Cardiovascular: positive: Regular rate & rhythm, No murmur. negative: Tachycardia Abdomen: positive: Non-tender, No distention. negative: Tenderness Skin: positive: Warm, Dry - Lab Results Fish Bones: 03/21/22 04:33 03/21/22 04:33 Other Labs: Lab Results x24hrs 03/21/22 03/21/22 Range/Units 04:33 04:33 WBC 8.3 (4.8-10.8) x10^3/uL RBC 5.17 (4.70-6.10) 10^6/uL Hgb 15.8 (14.0-18.0) g/dL Hct 45.2 (42.0-52.0) % MCV 87.4 (80.0-94.0) fL MCH 30.6 (27.0-31.0) pg MCHC 35.0 (32.0-36.0) g/dL RDW 12.4 (12.0-15.0) % Plt Count 284 (130-450) 10^3/uL MPV 10.9 (7.4-11.4) fL Neut # (Auto) 5.0 (1.5-6.6) 10^3/uL Lymph # (Auto) 2.3 (1.5-3.5) 10^3/uL [place] # (Auto) 0.8 (0.0-1.0) 10^3/uL Eos # (Auto) 0.1 (0.0-0.7) 10^3/uL Baso # (Auto) 0.0 (0.0-0.1) 10^3/uL Absolute Nucleated RBC 0.00 x10^3/uL Nucleated RBC % 0.0 /100WBC Sodium 136 (135-145) mmol/L Potassium 3.1 L (3.5-5.0) mmol/L Chloride 103 (101-111) mmol/L Carbon Dioxide 25 (21-32) mmol/L Anion Gap 8.0 (6-13) BUN 10 (6-20) mg/dL Creatinine 1.0 (0.6-1.2) mg/dL Estimated GFR (MDRD) 89 (>89) Glucose 98 (70-100) mg/dL Calcium 8.8 (8.5-10.3) mg/dL Magnesium 1.9 (1.7-2.8) mg/dL Total Bilirubin 1.7 H (0.2-1.0) mg/dL Direct Bilirubin 0.5 (0.1-0.5) mg/dL AST 56 H (10-42) IU/L ALT 117 H (10-60) IU/L Alkaline Phosphatase 53 (42-121) IU/L Total Protein 6.9 (6.7-8.2) g/dL Albumin 4.0 (3.2-5.5) g/dL Globulin 2.9 (2.1-4.2) g/dL Assessment/Plan - Problem List (1) Intractable vomiting Impression: This finally appears to be improving. Suspect may be due to the marijuana use or potential gastroenteritis. CT has been unremarkable. He did go for EGD today which showed mild irritation at the GE junction. Given the patient has significant emesis over the past few days, we will advance his diet today and likely observe him overnight. If he is able tolerate p.o. without emesis we will discharge him in the morning. Continue Zofran and Compazine as needed. Continue PPI. (2) Hypokalemia due to excessive gastrointestinal loss of potassium Impression: This is ongoing and secondary to GI losses due to the emesis. We will replace this intravenously today. (3) MANJIT (acute kidney injury) Impression: This is resolved and was secondary to volume depletion. Renal function is back to baseline. (4) Elevated WBC count Impression: This was likely reactive and has since resolved.
[2022-03-21 15:48] VITALS: BP 131/77
--- NOTE | 2022-03-21 15:55 | Discharge Plan ---
Discharge Plan Problem Reviewed?: Yes Disposition: Home, Self Care Condition: Stable Prescriptions: Potassium Chloride 10 meq PO DAILY #30 tab Pantoprazole [Protonix] 40 mg PO QDAC #30 tablet Diet: Regular Activity Restrictions: Activity as Tolerated Health Concerns: You were admitted to the hospital because of nausea and vomiting. It is felt that this may have been related to your marijuana use or a viral gastroenteritis. CT scan showed no abnormalities. You underwent an endoscopy which showed some mild inflammation near your esophagus and stomach which may be due to the vomiting that had been present for the past few days. Fortunately, your symptoms are now much improved and you are tolerating a diet. Plan of Treatment: Please take Protonix 40 mg once a day which can help with acid reflux. You can stop taking the Pepcid. You may take Zofran as needed for nausea. The general surgery office will contact you with the results of the biopsy from the endoscopy. Care Goals: The goal is to prevent further episodes of nausea and vomiting. Assessment: The patient expressed understanding of the treatment plan. Additional Instructions or Follow Up instructions: Please follow-up with your primary care physician in 1 week. It is recommended that they check your liver function numbers to ensure they are stable. They can also check your potassium to see if you can stop the potassium supplementation. No Smoking: If you smoke, Please STOP! Call for help.
--- NOTE | 2022-03-21 16:01 | DISCHARGE SUMMARY ---
"Discharge Summary Admit Date: 03/16/22 Discharge Date: 03/21/22 Discharging Provider: Ted Pepe Primary Care Provider: [facility] Code Status: Attempt Resuscitation Condition at Discharge: Stable Discharge Disposition: 01 Home, Self Care - DIAGNOSES Admission Diagnoses: Intractable vomiting Acute kidney injury Hypokalemia due to GI loss Elevated white blood cell count Marijuana use Discharge Diagnoses with Status of Each Condition: Intractable vomiting - resolved. GERD - stable. Hypokalemia due to GI loss - stable. Transaminitis - stable. Acute kidney injury - resolved. Elevated white blood cell count - resolved. - HPI History of Present Illness: H&P per Dr. Espinal: This is a normally healthy 27-year-old white male. He presented to this ED 4 days ago with nausea vomiting and brief abdominal pain, which started 2 days previously after eating a [place] sub. In the ED then, he had normal CT and labs, received IV fluids, antiemetics, was able to tolerate po intake and was discharged home. He had Zofran ODT prescribed. He felt weak but overall better in the last 2 days, ate light meals, had no fever, no diarrhea, but then today again developed recurrent nausea and vomiting and longer lasting abdominal pain and presented to the ED. The recently prescribed Zofran ODT did not help. He felt hot and cold, was shivering, face was red and swollen when retching (chely wn on a selfie). Today in the ED again an abdominal CT was done that was unremarkable. Today his labs show an elevated white blood count of 15, MANJIT, elevated anion gap, hypokalemia and his drug screen has (+) cannibis. He denied using cannibis for the last 2 weeks however. In the ED, the patient received 3 separate meds for managing nausea vomiting, but was still retching, diaphoretic and appeared uncomfortable. He has not traveled anywhere, started any new medications. He is not exposed to anybody with fever or GI symptoms. The patient is being placed in Observation status to manage his recurrent, incessant nausea and vomiting and abdominal pain. - CONSULTS | PROCEDURES Consultations: General Surgery Procedures: EGD on March 21 showed inflammation/irritation of the GE junction and distal esophagus. Cold forcep biopsies taken. Normal EGD otherwise. No ulcer, stricture, hiatal hernia. - HOSPITAL COURSE Hospital Course: The patient was admitted for intractable nausea and vomiting. He had an elevated white blood cell count and mild acute kidney injury on admission. This was felt to be reactive and his acute kidney injury resolved with IV fluids. His white blood cell count improved each day. Initial CT the abdomen pelvis showed no acute normalities. It was thought that his nausea and vomiting may have been due to gastroenteritis or marijuana use. He was treated with multiple antiemetics but continued to fail p.o. challenge over the first 2 to [address] the abdomen pelvis was obtained which continue to show no acute abnormalities. Given he still had intractable nausea/vomiting, general surgery was consulted. He did undergo an EGD which showed mild irritation of the GE junction but was otherwise normal. Fortunately, his symptoms began to improve and he was started on a clear liquid diet which he tolerated. His diet was then advanced and he continued to do well so he is now stable for discharge home. He was prescribed Protonix to take once daily as well as Zofran as needed. He was encouraged to refrain from marijuana use which he states he had already quit a few weeks ago. His LFTs are mildly elevated so recommend that if this is rec hecked on an outpatient basis as well as a BMP to ensure his potassium is stable. He was discharged with potassium supplementation. - ALLERGIES Allergies/Adverse Reactions: Allergies Allergy/AdvReac Type Severity Reaction Status Date / Time No Known Drug Allergies Allergy Verified 03/13/22 21:16 - MEDICATIONS Home Medications: Ambulatory Orders Medication Instructions Recorded Confirmed Ondansetron Odt [Zofran Odt] 4 mg TL Q6H PRN 03/16/22 03/16/22 Pantoprazole [Protonix] 40 mg PO QDAC #30 tablet 03/21/22 Potassium Chloride 10 meq PO DAILY #30 tab 03/21/22 - PHYSICAL EXAM AT DISCHARGE General Appearance: positive: No acute distress, Alert Eyes Bilateral: positive: Normal inspection, Conjunctivae nml ENT: positive: ENT inspection nml Neck: positive: Nml inspection Respiratory: positive: No respiratory distress. negative: Wheezes, Rales Cardiovascular: positive: Regular rate & rhythm, No murmur. negative: Tachyc ardia Abdomen: positive: Non-tender, No distention. negative: Tenderness Skin: positive: Warm, Dry Extremities: positive: No pedal edema Neurologic/Psychiatric: positive: Motor nml. negative: Disoriented to person, Disoriented to place, Disoriented to time Physical Exam Other/Comments: Vital Signs - 24 hr 03/21/22 03/21/22 03/21/22 00:00 08:00 13:31 Temperature 36.6 C 36.7 C Heart Rate [ 53 L 65 116 H Brachial] Respiratory 17 18 Rate Blood Pressure [Left Brachial artery] Blood Pressure 130/64 125/69 93/73 [Right Brachial artery] O2 Saturation 96 99 03/21/22 03/21/22 03/21/22 13:47 14:02 14:17 Temperature 36.7 C 36.4 C L 36.5 C Heart Rate [ 92 83 67 Brachial] Respiratory Rate Blood Pressure [Left Brachial artery] Blood Pressure 115/77 137/87 H 131/86 H [Right Brachial artery] O2 Saturation 97 100 98 03/21/22 15:47 Temperature 37 C Heart Rate [ 67 Brachial] Respiratory 17 Rate Blood Pressure 131/77 H [Left Brachial artery] Blood Pressure [Right Brachial artery] O2 Saturation 98 Oxygen O2 Source Room air - LABS Result Diagrams: 03/21/22 04:33 03/21/22 04:33 - DIAGNOSTIC IMAGING Diagnostic Imaging Results: Final report reviewed - FOLLOW UP Follow Up: He was asked to follow-up with his primary care physician at the [place] [facility] in 1 week. He will need his LFTs monitored as they are mildly elevated. This was discussed with the patient. - TIME SPENT Time Spent in Discharge (Minutes): 31"
[2022-03-21] MEDS: PROCHLORPERAZINE 10 MG/2 ML VIAL IVP PRN (16:15)
[2022-03-21] MEDS ORDERED: POTASSIUM CHLORIDE 20 MEQ TABLET PO ONE (18:33)
== END 2022-03-21 19:15 | disposition home or self-care (01) | DRG 392 ==
LOC: EDBD → EDUNIT# → ED 18:18 → MS2 21:47 → OBSVTOIN 03-18 11:19
PROVIDERS: ADMIT Internal Medicine; ATTEND Internal Medicine
PROC: 0DB78ZX Excision of Stomach, Pylorus, Via Natural or Artificial Opening Endoscopic, Diagnostic (ICD-10-PCS; 2022-03-21)
PROC: 0DB38ZX Excision of Lower Esophagus, Via Natural or Artificial Opening Endoscopic, Diagnostic (ICD-10-PCS; 2022-03-21)
PROC: 0DB48ZX Excision of Esophagogastric Junction, Via Natural or Artificial Opening Endoscopic, Diagnostic (ICD-10-PCS; principal; 2022-03-21 13:00)
DX: R11.2 Nausea with vomiting, unspecified (principal); N17.9 Acute kidney failure, unspecified; K21.9 Gastro-esophageal reflux disease without esophagitis; E87.6 Hypokalemia; R74.01 Elevation of levels of liver transaminase levels; D72.829 Elevated white blood cell count, unspecified; E86.0 Dehydration; R10.84 Generalized abdominal pain; Z87.891 Personal history of nicotine dependence; Z20.822 Contact with and (suspected) exposure to COVID-19
CPT/HCPCS: 36415; 74177; 80048; 80053; 80076; 80306; 81003; 83690; 83735; 84100; 85025; 87635; 96365; 96366; 96367; 96375; 96376; 99284; 99285; A9270; J1170; J2060; J2765; J7040; Q9967; 81001; 87086